=== PATIENT | male | born 1990 | race Caucasian/White ===

== ENCOUNTER 2017-05-21 19:13 | Emergency (ER) | payer OTHER ==
[~2017-05-21] VITALS: Ht 185.4 cm; Wt 65.0 kg
[~2017-05-21 19:13] MED LIST: ATR25 PO; BENZ0.5T2 PO; PRVHFAIN INH; RISP-99 PO
[2017-05-21 19:26] VITALS: TEMP 36.7; Ht 185.4 cm; Wt 65.0 kg
[2017-05-21] MEDS ORDERED: LORAZEPAM 2 MG/ML 1 ML VIAL IV STA (19:38)
[2017-05-21] MEDS ORDERED: SODIUM CHLORIDE 0.9% 1000ML 1,000 ML IV STA (19:38)
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
[2017-05-21 19:56] LABS: BASO % 0.2 %; BASO ABS # 0.02 K/uL (0-0.2); EOS % 4.1 %; HEMOGLOBIN 14.5 g/dL (14.0-18.0); IG# 0.02 K/uL (0.00-0.02); LYMPH % 16.9 %; LYMPH ABS # 1.65 K/uL (1.2-3.4); MEAN CELL VOLUME 81.5 fL (80-100); MEAN CORPUSCULAR HEMOGLOBIN 28.8 pg (25-34); MEAN CORPUSCULAR HGB CONC 35.4 g/dl (32-36); MEAN PLATELET VOLUME 8.7 fL (7.4-10.4); MONO % 8.6 %; MONO ABS # 0.84 K/uL (0.11-0.59); NEUT ABS # 6.81 K/uL (1.4-6.5); PLATELET COUNT 208 K/uL (130-400); RED CELL DISTRIBUTION WIDTH CV 14.3 % (11.5-14.5); RED CELL DISTRIBUTION WIDTH SD 42.6 fL (36.4-46.3); WHITE BLOOD COUNT 9.74 K/uL (4.8-10.8)
[2017-05-21 20:17] LABS: ALBUMIN 3.9 gm/dl (3.4-5.0); CALCIUM 8.6 mg/dl (8.5-10.1); CREATININE 1.26 mg/dl (0.60-1.40); POTASSIUM 3.6 mmol/L (3.5-5.1)
[2017-05-21] MEDS ORDERED: NAPR1TAB9 PO (20:21)
[2017-05-21 20:28] LABS: TOTAL PROTEIN 6.6 gm/dl (6.4-8.2)
--- NOTE | 2017-05-22 06:12 | EMERGENCY ROOM VISIT NOTE ---
ED Visit Note First contact with patient: 02:25 27yr old methamphetamine addicted male with history of bipolar arrived acutely agitated last evening and initially evaluated, treated by Dr Haines who gave ativan IV to help calm him down. Re-evaluated ~3am and patient still under influence of meth and not in any position to make level headed decisions. Eventually able to sleep some and will await morning when awake, sober and capable to discussing his mental health, his statements regarding killing himself (which at this time he doesn't even remember), and whether he is safe for discharge or requires inpatient treatment. Patient stable throughout rest of evening at which time he was signed out to Dr Witt awaiting sobering and further mental health evaluation.
[2017-05-22] MEDS ORDERED: LORAZEPAM 1 MG TAB SL STA (09:00)
--- NOTE | 2017-05-22 09:25 | EMERGENCY ROOM VISIT NOTE ---
ED Visit Note First contact with patient: 06:38 Patient signed out to me at change of shift pending mental health evaluation. Patient had his mental health evaluations morning and was felt stable enough to be discharged. He denies being suicidal or homicidal. The case was discussed with [facility] police. They do not wish to have the patient returned. He was given 2 mg of Ativan while in the emergency department.
[2017-05-22 10:17] VITALS: BP 110/68; PULSE 93; O2SAT 95
== END 2017-05-22 10:18 | disposition home or self-care (01) ==
LOC: EDBD 19:13 → C.EDA 19:15
DX: F19.10 Other psychoactive substance abuse, uncomplicated (principal); R45.850 Homicidal ideations; R45.851 Suicidal ideations; F31.9 Bipolar disorder, unspecified; F17.200 Nicotine dependence, unspecified, uncomplicated; Z79.899 Other long term (current) drug therapy; Z82.49 Family history of ischemic heart disease and other diseases of the circulatory system; Z83.3 Family history of diabetes mellitus; Z82.3 Family history of stroke

== ENCOUNTER 2017-09-15 04:46 | Inpatient (IN) | payer OTHER ==
[~2017-09-15] VITALS: Ht 188 cm; Wt 67.2 kg
[~2017-09-15 04:46] MED LIST changes: +NAPR1TAB9 PO
[2017-09-15] MEDS ORDERED: SODIUM CHLORIDE 0.9% 1000ML 2,000 ML IV STA (04:58)
[2017-09-15] MEDS ORDERED: LORAZEPAM 2 MG/ML 1 ML VIAL IV STA (04:58)
[2017-09-15] MEDS ORDERED: LORAZEPAM 2 MG/ML 1 ML VIAL ONE (04:58)
[2017-09-15 05:09] LABS: BASO % 0.3 %; BASO ABS # 0.04 K/uL (0-0.2); EOS % 0.4 %; EOS ABS # 0.06 K/uL (0-0.5); HEMATOCRIT 40.5 % (42-52); HEMOGLOBIN 14.9 g/dL (14.0-18.0); IG# 0.03 K/uL (0.00-0.02); LYMPH % 23.2 %; MEAN CELL VOLUME 79.1 fL (80-100); MEAN CORPUSCULAR HEMOGLOBIN 29.1 pg (25-34); MEAN CORPUSCULAR HGB CONC 36.8 g/dl (32-36); MONO % 16.3 %; MONO ABS # 2.45 K/uL (0.11-0.59); NEUT % 59.6 %; NEUT ABS # 8.99 K/uL (1.4-6.5); PLATELET COUNT 216 K/uL (130-400); RED CELL DISTRIBUTION WIDTH CV 12.9 % (11.5-14.5); RED CELL DISTRIBUTION WIDTH SD 37.2 fL (36.4-46.3); WHITE BLOOD COUNT 15.07 K/uL (4.8-10.8)
[2017-09-15 05:19] LABS: INR 1.1 (0.9-1.1); PTT PATIENT 24.3 SECONDS (21.0-31.0)
[2017-09-15 05:28] LABS: ALBUMIN 4.6 gm/dl (3.4-5.0); CALCIUM 9.4 mg/dl (8.5-10.1); CREATININE 2.06 mg/dl (0.60-1.40); POTASSIUM 3.8 mmol/L (3.5-5.1)
[2017-09-15] MEDS ORDERED: DIPHTHERIA/TETANUS/PERTUSSIS 0.5 ML SYR/VIAL IM. ONE (05:30)
--- NOTE | 2017-09-15 05:31 | EMERGENCY ROOM VISIT NOTE ---
History First contact with patient: 04:58 Chief Complaint: OVERDOSE (INTENTIONAL) Stated Complaint: OVERDOSE History of Present Illness The patient is a 27 year old male who presents to the Emergency Room following cocaine/drug overdose. Most of story per EMS who were called to his residence by his grandmother who note he was acting abnormally. EMS arrived to find acutely agitated patient who states he took IV cocaine laced with something. Unfortunately story is somewhat confounded by patient's severe agitation and periodically stating he has been having this for the last few hours to several days. Does yell out that his cocaine must have been laced with bath salts or meth. EMS gave patient 4mg IM ativan (by my med command) en route with mild improvement in his aggitation. No trauma reported. Patient does not know last tetanus vaccination. Review of Systems See HPI for pertinent positives & negatives. Unable to obtain full ROS as patient is OD and severely agitated with rapidly changing mood and story. Past Medical/Surgical History Medical Problems: (1) Bipolar disorder (2) Drug overdose (3) Opioid dependence (4) Overdose (5) Polysubstance dependence Family History Coronary artery disease Diabetes mellitus Bannock's chorea Myocardial infarction Stroke Social History Smoking Status: Former Smoker Alcohol Use: occasionally Drug Use: cocaine, marijuana, other Marital Status: single Occupation Status: employed Current/Historical Medications Scheduled Bupropion HCl (Bupropion HCl Sr), 75 MG PO DAILY Carbamazepine (Tegretol), 1.5 TAB PO BID Citalopram Hydrobromide (Celexa), 1 TAB PO DAILY Naproxen (Aleve), 440 MG PO PRN Scheduled PRN Albuterol (Ventolin Hfa), 1 PUFF INH Q4H PRN for SOB/Wheezing Hydroxyzine HCl (Hydroxyzine HCl), 25 MG PO DIRECTED PRN for Anxiety and/or Sedation Physical Exam Vital Signs Date Time Temp Pulse Resp B/P (MAP) Pulse Ox O2 Delivery O2 Flow Rate FiO2 09/15/17 08:00 86 19 113/61 98 09/15/17 07:00 95 111/56 97 Room Air 09/15/17 06:41 119/74 09/15/17 06:26 90 20 94 Room Air 09/15/17 06:21 97 20 98 Room Air 09/15/17 06:00 120/65 09/15/17 05:51 101 21 96 Room Air 09/15/17 05:30 115/69 09/15/17 05:21 118 13 93 Room Air 09/15/17 05:16 111 25 92 Room Air 09/15/17 05:11 115 09/15/17 05:09 125/71 09/15/17 05:04 172/134 09/15/17 04:46 95 Room Air 09/15/17 04:46 37.0 162 26 172/134 95 Room Air Physical Exam GENERAL: Patient is severely agitated appearing and in moderate/severe distress. EYES: Injected conjunctiva bilaterally, unremarkable pupils. ENT: Mucous membranes dry, no nasal congestion. NECK: No masses appreciated, no meningismus, trachea is midline. RESPIRATORY: No dyspnea. Clear to auscultation and equal bilaterally. No wheeze , no rhonchi. CARDIOVASCULAR: Tachycardic. No murmurs, rubs, gallops appreciated. GASTROINTESTINAL: Abdomen soft, nontender, no peritonitis. Bowel sounds positive. No masses appreciated. BACK: No midline tenderness, no CVA tenderness EXTREMITIES: Normal motion all extremities, no cyanosis, no edema. NEUROLOGIC: Severely agitated, consistent with meth overdose, no acute motor or sensory deficits, no focal weakness, cranial nerves grossly intact. SKIN: Tract dozier bilateral AC and upper arms. Bruising/pressure redness anterior knees. No jaundice. Medical Decision & Procedures Laboratory Results 09/15/17 04:54 Red Blood Count 5.12, Mean Corpuscular Volume 79.1, Mean Corpuscular Hemoglobin 29.1, Mean Corpuscular Hemoglobin Concent 36.8, Mean Platelet Volume 9.0, Neutrophils (%) (Auto) 59.6, Lymphocytes (%) (Auto) 23.2, Monocytes (%) (Auto) 16.3, Eosinophils (%) (Auto) 0.4, Basophils (%) (Auto) 0.3, Neutrophils # (Auto ) 8.99, Lymphocytes # (Auto) 3.50, Monocytes # (Auto) 2.45, Eosinophils # (Auto ) 0.06, Basophils # (Auto) 0.04 09/15/17 04:54 Test 09/15/17 04:54 09/15/17 04:58 White Blood Count 15.07 K/uL (4.8-10.8) Red Blood Count 5.12 M/uL (4.7-6.1) Hemoglobin 14.9 g/dL (14.0-18.0) Hematocrit 40.5 % (42-52) Mean Corpuscular Volume 79.1 fL (80-100) Mean Corpuscular Hemoglobin 29.1 pg (25-34) Mean Corpuscular Hemoglobin Concent 36.8 g/dl (32-36) Platelet Count 216 K/uL (130-400) Mean Platelet Volume 9.0 fL (7.4-10.4) Neutrophils (%) (Auto) 59.6 % Lymphocytes (%) (Auto) 23.2 % Monocytes (%) (Auto) 16.3 % Eosinophils (%) (Auto) 0.4 % Basophils (%) (Auto) 0.3 % Neutrophils # (Auto) 8.99 K/uL (1.4-6.5) Lymphocytes # (Auto) 3.50 K/uL (1.2-3.4) Monocytes # (Auto) 2.45 K/uL (0.11-0.59) Eosinophils # (Auto) 0.06 K/uL (0-0.5) Basophils # (Auto) 0.04 K/uL (0-0.2) RDW Standard Deviation 37.2 fL (36.4-46.3) RDW Coefficient of Variation 12.9 % (11.5-14.5) Immature Granulocyte % (Auto) 0.2 % Immature Granulocyte # (Auto) 0.03 K/uL (0.00-0.02) Prothrombin Time 12.0 SECONDS (9.0-12.0) Prothromb Time International Ratio 1.1 (0.9-1.1) Activated Partial Thromboplast Time 24.3 SECONDS (21.0-31.0) Partial Thromboplastin Ratio 0.9 Anion Gap 15.0 mmol/L (3-11) Est Creatinine Clear Calc Drug Dose 54.3 ml/min Estimated GFR () 50.0 Estimated GFR (Non- 43.2 BUN/Creatinine Ratio 14.0 (10-20) Osmolality 295 mOsm/kg (280-300) Calcium Level 9.4 mg/dl (8.5-10.1) Phosphorus Level 7.7 mg/dl (2.5-4.9) Magnesium Level 1.8 mg/dl (1.8-2.4) Total Bilirubin 0.9 mg/dl (0.2-1) Direct Bilirubin 0.3 mg/dl (0-0.2) Aspartate Amino Transf (AST/SGOT) 173 U/L (15-37) Alanine Aminotransferase (ALT/SGPT) 61 U/L (12-78) Alkaline Phosphatase 89 U/L (45-117) Total Creatine Kinase 4846 U/L (39-308) Creatine Kinase MB 45.3 ng/ml (0.5-3.6) Creatine Kinase MB Ratio 0.9 (0-3.0) Total Protein 8.0 gm/dl (6.4-8.2) Albumin 4.6 gm/dl (3.4-5.0) Lipase 74 U/L (73-393) Ethyl Alcohol mg/dL < 3.0 mg/dl (0-3) Medications Administered Medications (Trade) Dose Ordered Sig/Demond Route Start Time Stop Time Status Last Admin Dose Admin Sodium Chloride 2,000 ml @ 999 mls/hr Q2H1M STAT IV 09/15/17 04:58 09/15/17 06:58 DC 09/15/17 05:14 999 MLS/HR Lorazepam (Ativan Inj) 2 mg NOW STAT IV 09/15/17 04:58 09/15/17 05:00 DC 09/15/17 05:14 2 MG Diphtheria/ Pertussis/Tetanus Vacc (Adacel Inj) 0.5 ml ONCE ONCE IM. 09/15/17 05:30 09/15/17 05:31 DC 09/15/17 05:43 0.5 ML Sodium Chloride 1,000 ml @ 200 mls/hr Q5H STAT IV 09/15/17 05:50 09/15/17 10:18 DC 09/15/17 06:52 200 MLS/HR Sodium Chloride 1,000 ml @ 125 mls/hr Q8H IV 09/15/17 08:14 10/15/17 08:13 09/15/17 10:50 125 MLS/HR Medical Decision Differential: Alcohol Intoxication, Drug Intoxication, Electrolyte Abnormality, Trauma, Intracranial Event, Toxicological, Excited Delirium, Serotonin Syndrome , amongst other pathologies entertained. 27 yr old male arrives severely agitated who is well known to department for meth addiction and previous drug overdoses. By exam he is consistent with meth overdose. He has moderate hypertension, significant tachycardia and is somewhat out of control on arrival requiring restraints, hand cuffs and security. I was unable to verbally deescalate nor re-direct the patient. The patient's combative behavior was risking a catastrophe. To protect the staff and the patient from harm it was necessary to chemically and physically restrain the patient. He was given 2 L NSS bolus followed by NSS infusion. Required 2mg IM Ativan, 2mg IV Ativan, and 10mg IM haldol to properly sedate to point where no longer actively fighting restraints. There is not evidence of head injury and he does not act like head injury. He has had several CT heads in past for similar and I do not feel that repeating this required at this time. Labs consistent with acute rhabdomyolysis and he is entering renal failure. Trop mildly bumped which is consistent with rhabdo, though could be some cardiac given report of cocaine use and this tachycardia/HTN on arrival. No STEMI on EKG and I do not feel it represents ACS at this time. QTC is < 500 post haldol. BiCarb mildly low consistent with his agitated state prior to arrival. O2 sats remain good. Consulted hospitalist for further management given rhabdo and renal failure. They have ordered cxr, ct chest, ct abdo for further evaluation and these reports are pending. Head Trauma GCS Score: 14 Medication Reconcilliation Current Medication List: was personally reviewed by me Blood Pressure Screening Patient's blood pressure: Elevated blood pressure Will be further monitored by hospitalist. Impression Primary Impression: Methamphetamine intoxication Additional Impressions: Rhabdomyolysis Renal failure Dehydration Combative behavior Excited Delirium Critical Care I have personally spent greater than 35 minutes of critical care time in the direct management of this patient. This was a life/limb threatening event. This includes time spent evaluating patient, direct bedside care, chart review, placing orders, interpretation of diagnostic studies, discussion with consultants, patient, and family members, as well as other required patient management activities. This 35 minutes is in excess of all separately billable procedures. Departure Information Referrals Lux Salinas PA-C (PCP) Patient Instructions My [facility] Problem Qualifiers
[2017-09-15 05:47] LABS: CKMB 45.3 ng/ml (0.5-3.6); PHOSPHORUS 7.7 mg/dl (2.5-4.9)
[2017-09-15] MEDS ORDERED: SODIUM CHLORIDE 0.9% 1000ML 1,000 ML IV STA (05:50)
--- NOTE | 2017-09-15 07:03 | DIAGNOSTIC IMAGING REPORT ---
CHEST ONE VIEW PORTABLE CLINICAL HISTORY: 27 years-old Male presenting with hypoxia, drug overdose. TECHNIQUE: Portable supine AP view of the chest was obtained. COMPARISON: None. FINDINGS: Cardiomediastinal silhouette normal. Pulmonary vascular prominence. Bronchial wall thickening. Lungs and pleural spaces clear. Osseous structures normal. Upper abdomen normal. IMPRESSION: 1. Bronchial wall thickening could suggest reactive airways or bronchitis. 2. Pulmonary vascular prominence could relate to supine technique versus congestive change/volume overload. Electronically signed by: Bora Hair M.D. 09/15/2017 7:02 AM Dictated Date/Time: 09/15/2017 7:01 AM
--- NOTE | 2017-09-15 07:30 | DIAGNOSTIC IMAGING REPORT ---
(CHEST) THORAX WITHOUT CLINICAL HISTORY: Hypoxia, drug overdose, abnormal chest x-ray. COMPARISON STUDY: Chest x-ray dated 09/15/2017 CT DOSE: 660.36 mGy.cm TECHNIQUE: CT of the thorax was performed from the thoracic inlet to the lung bases. Images are reviewed in the axial, sagittal, and coronal planes. IV contrast was not administered for this examination. A dose lowering technique was utilized adhering to the principles of ALARA. FINDINGS: Thyroid: Imaged portions of the thyroid gland are normal in appearance. Thoracic aorta: The thoracic aorta is normal in course and caliber, noting standard 3 vessel arch anatomy. Heart: The heart is normal in size and configuration, without pericardial effusion. Lungs and pleural spaces: No pleural effusions are visualized. There are tiny apical blebs present. There is a 17 mm groundglass pleural-based opacity within the right upper lobe. This is likely atelectatic or inflammatory. Mediastinum: There is no mediastinal lymphadenopathy. Vickie: There is no evidence of pathologic hilar adenopathy given the limitations of a noncontrast study Axilla: Clear. Upper abdomen: Partially visualized upper abdominal viscera is within normal limits. Skeletal structures: There are no lytic or blastic osseous lesions. IMPRESSION: 1. 17 x 16 x 7 mm groundglass pleural-based opacity within the right upper lobe anteriorly, likely atelectatic or inflammatory 2. Biapical blebs 3. No evidence of pathologic adenopathy on this noncontrast study Electronically signed by: Hardeep Kelly M.D. 09/15/2017 7:29 AM Dictated Date/Time: 09/15/2017 7:23 AM
--- NOTE | 2017-09-15 07:43 | DIAGNOSTIC IMAGING REPORT ---
ABDOMEN AND PELVIS CT WITHOUT CONTRAST CT DOSE: HISTORY: Acute kidney injury, elevated LFT's, IV drug abuse TECHNIQUE: Multiaxial CT images of the abdomen and pelvis were performed without contrast. A dose lowering technique was utilized adhering to the principles of ALARA. COMPARISON STUDY: None. FINDINGS: There is streak artifact overlying the upper abdominal structures due to the patient's overlapping arms. The lung bases are clear. No pneumoperitoneum. No pneumatosis. No acute fractures within the visualized osseous structures. The unenhanced liver, spleen, adrenal glands, pancreas, gallbladder, and kidneys are unremarkable. No retroperitoneal lymphadenopathy. Normal bladder. No pelvic free fluid. Suboptimal evaluation for bowel pathology due to the lack of intravenous and oral contrast. However, there is no definite bowel wall thickening or obstruction. The visualized appendix appears unremarkable. IMPRESSION: No significant abnormality identified within the abdomen or pelvis. Electronically signed by: Guero Frias M.D. 09/15/2017 7:42 AM Dictated Date/Time: 09/15/2017 7:36 AM
--- NOTE | 2017-09-15 08:14 | History and Physical ---
History & Physical Date & Time of Service: September 15, 2017 at 08:08 Chief Complaint: Overdose Primary Care Physician: Lux Salinas PA-C History of Present Illness This is a 27 yo M with PMHx of bipolar disorder, polysubstance abuse who presented to the ER after EMS picked patient up as his grandmother noted abnormal behavior. The patient is unable to provide any history due to sedation. Per nursing, the patient was extremely agitated in EMS therefore was administered Ativan 4 mg IV. Pt is reported to have injected cocaine which may or may not have been laced with another substance. Past Medical/Surgical History Medical Problems: (1) Altered mental status (2) Bipolar disorder (3) Homicidal ideation (4) Illicit drug use (5) Opioid dependence (6) Overdose (7) Polysubstance dependence (8) Substance abuse (9) Suicidal ideation Family History Coronary artery disease Diabetes mellitus Alessio's chorea Myocardial infarction Stroke Social History Smoking Status: Former Smoker Drug Use: cocaine, marijuana, other Marital Status: single Housing status: lives with family Occupational Status: employed Immunizations History of Influenza Vaccine: Yes History of Tetanus Vaccine?: Yes History of Pneumococcal: No History of Hepatitis B Vaccine: No Allergies Coded Allergies: No Known Allergies (Unverified , none, 05/12/11) Home Medications Scheduled Benztropine Mesylate (Benztropine Mesylate), 0.5 MG PO BID Naproxen (Aleve), 440 MG PO PRN Risperidone (Risperidone), 0.5 MG PO HS Scheduled PRN Albuterol (Ventolin Hfa), 1 PUFF INH Q4H PRN for SOB/Wheezing Hydroxyzine HCl (Hydroxyzine HCl), 25 MG PO DIRECTED PRN for Anxiety and/or Sedation Review of Systems ROS unobtainable due to sedation. Physical Exam Vital Signs Date Time Temp Pulse Resp B/P (MAP) Pulse Ox O2 Delivery O2 Flow Rate FiO2 09/15/17 07:00 95 111/56 97 Room Air 09/15/17 06:41 119/74 09/15/17 06:26 90 20 94 Room Air 09/15/17 06:21 97 20 98 Room Air 09/15/17 06:00 120/65 09/15/17 05:51 101 21 96 Room Air 09/15/17 05:30 115/69 09/15/17 05:21 118 13 93 Room Air 09/15/17 05:16 111 25 92 Room Air 09/15/17 05:11 115 09/15/17 05:09 125/71 09/15/17 05:04 172/134 09/15/17 04:46 95 Room Air 09/15/17 04:46 37.0 162 26 172/134 95 Room Air General Appearance: WD/WN, no apparent distress, + pertinent finding (asleep, laying on stomach, in 4 point leather restraints) Head: normocephalic, atraumatic Eyes: PERRL, EOMI, + pertinent finding (responds to light being shown in eyes) ENT: + pertinent finding (MMM) Neck: no JVD Respiratory/Chest: lungs clear, no respiratory distress, no accessory muscle use Cardiovascular: no murmur, + tachycardia (regular rhythm) Back: normal inspection Extremities/Musculoskelatal: normal inspection, no pedal edema, + pertinent finding (erythema over the left elbow/forearm) Neurologic/Psych: + pertinent finding (asleep due to sedation) Skin: normal color, warm/dry, + pertinent finding (multiple tatoos) Diagnostics Laboratory Results Results Past 24 Hours Test 09/15/17 04:54 09/15/17 04:58 Range/Units White Blood Count 15.07 4.8-10.8 K/uL Red Blood Count 5.12 4.7-6.1 M/uL Hemoglobin 14.9 14.0-18.0 g/dL Hematocrit 40.5 42-52 % Mean Corpuscular Volume 79.1 80-100 fL Mean Corpuscular Hemoglobin 29.1 25-34 pg Mean Corpuscular Hemoglobin Concent 36.8 32-36 g/dl Platelet Count 216 130-400 K/uL Mean Platelet Volume 9.0 7.4-10.4 fL Neutrophils (%) (Auto) 59.6 % Lymphocytes (%) (Auto) 23.2 % Monocytes (%) (Auto) 16.3 % Eosinophils (%) (Auto) 0.4 % Basophils (%) (Auto) 0.3 % Neutrophils # (Auto) 8.99 1.4-6.5 K/uL Lymphocytes # (Auto) 3.50 1.2-3.4 K/uL Monocytes # (Auto) 2.45 0.11-0.59 K/uL Eosinophils # (Auto) 0.06 0-0.5 K/uL Basophils # (Auto) 0.04 0-0.2 K/uL RDW Standard Deviation 37.2 36.4-46.3 fL RDW Coefficient of Variation 12.9 11.5-14.5 % Immature Granulocyte % (Auto) 0.2 % Immature Granulocyte # (Auto) 0.03 0.00-0.02 K/uL Prothrombin Time 12.0 9.0-12.0 SECONDS Prothromb Time International Ratio 1.1 0.9-1.1 Activated Partial Thromboplast Time 24.3 21.0-31.0 SECONDS Partial Thromboplastin Ratio 0.9 Sodium Level 137 136-145 mmol/L Potassium Level 3.8 3.5-5.1 mmol/L Chloride Level 104 98-107 mmol/L Carbon Dioxide Level 18 21-32 mmol/L Anion Gap 15.0 3-11 mmol/L Blood Urea Nitrogen 29 7-18 mg/dl Creatinine 2.06 0.60-1.40 mg/dl Est Creatinine Clear Calc Drug Dose 54.3 ml/min Estimated GFR () 50.0 Estimated GFR (Non- 43.2 BUN/Creatinine Ratio 14.0 10-20 Random Glucose 111 70-99 mg/dl Osmolality 295 280-300 mOsm/kg Calcium Level 9.4 8.5-10.1 mg/dl Phosphorus Level 7.7 2.5-4.9 mg/dl Magnesium Level 1.8 1.8-2.4 mg/dl Total Bilirubin 0.9 0.2-1 mg/dl Direct Bilirubin 0.3 0-0.2 mg/dl Aspartate Amino Transf (AST/SGOT) 173 15-37 U/L Alanine Aminotransferase (ALT/SGPT) 61 12-78 U/L Alkaline Phosphatase 89 45-117 U/L Total Creatine Kinase 4846 39-308 U/L Creatine Kinase MB 45.3 0.5-3.6 ng/ml Creatine Kinase MB Ratio 0.9 0-3.0 Troponin I 0.063 0-0.045 ng/ml Total Protein 8.0 6.4-8.2 gm/dl Albumin 4.6 3.4-5.0 gm/dl Lipase 74 73-393 U/L Ethyl Alcohol mg/dL < 3.0 0-3 mg/dl Diagnostic Radiology CHEST ONE VIEW PORTABLE CLINICAL HISTORY: 27 years-old Male presenting with hypoxia, drug overdose. TECHNIQUE: Portable supine AP view of the chest was obtained. COMPARISON: None. FINDINGS: Cardiomediastinal silhouette normal. Pulmonary vascular prominence. Bronchial wall thickening. Lungs and pleural spaces clear. Osseous structures normal. Upper abdomen normal. IMPRESSION: 1. Bronchial wall thickening could suggest reactive airways or bronchitis. 2. Pulmonary vascular prominence could relate to supine technique versus congestive change/volume overload. ABDOMEN AND PELVIS CT WITHOUT CONTRAST CT DOSE: HISTORY: Acute kidney injury, elevated LFT's, IV drug abuse TECHNIQUE: Multiaxial CT images of the abdomen and pelvis were performed without contrast. A dose lowering technique was utilized adhering to the principles of ALARA. COMPARISON STUDY: None. FINDINGS: There is streak artifact overlying the upper abdominal structures due to the patient's overlapping arms. The lung bases are clear. No pneumoperitoneum. No pneumatosis. No acute fractures within the visualized osseous structures. The unenhanced liver, spleen, adrenal glands, pancreas, gallbladder, and kidneys are unremarkable. No retroperitoneal lymphadenopathy. Normal bladder. No pelvic free fluid. Suboptimal evaluation for bowel pathology due to the lack of intravenous and oral contrast. However, there is no definite bowel wall thickening or obstruction. The visualized appendix appears unremarkable. IMPRESSION: No significant abnormality identified within the abdomen or pelvis. Electronically signed by: Guero Frias M.D. 09/15/2017 7:42 AM Dictated Date/Time: 09/15/2017 7:36 AM The status of this report is Signed. (CHEST) THORAX WITHOUT CLINICAL HISTORY: Hypoxia, drug overdose, abnormal chest x-ray. COMPARISON STUDY: Chest x-ray dated 09/15/2017 CT DOSE: 660.36 mGy.cm TECHNIQUE: CT of the thorax was performed from the thoracic inlet to the lung bases. Images are reviewed in the axial, sagittal, and coronal planes. IV contrast was not administered for this examination. A dose lowering technique was utilized adhering to the principles of ALARA. FINDINGS: Thyroid: Imaged portions of the thyroid gland are normal in appearance. Thoracic aorta: The thoracic aorta is normal in course and caliber, noting standard 3 vessel arch anatomy. Heart: The heart is normal in size and configuration, without pericardial effusion. Lungs and pleural spaces: No pleural effusions are visualized. There are tiny apical blebs present. There is a 17 mm groundglass pleural-based opacity within the right upper lobe. This is likely atelectatic or inflammatory. Mediastinum: There is no mediastinal lymphadenopathy. Vickie: There is no evidence of pathologic hilar adenopathy given the limitations of a noncontrast study Axilla: Clear. Upper abdomen: Partially visualized upper abdominal viscera is within normal limits. Skeletal structures: There are no lytic or blastic osseous lesions. IMPRESSION: 1. 17 x 16 x 7 mm groundglass pleural-based opacity within the right upper lobe anteriorly, likely atelectatic or inflammatory 2. Biapical blebs 3. No evidence of pathologic adenopathy on this noncontrast study Electronically signed by: Hardeep Kelly M.D. 09/15/2017 7:29 AM Dictated Date/Time: 09/15/2017 7:23 AM The status of this report is Signed. EKG Sinus tachycardia Rightward axis Borderline ECG When compared with ECG of 21-MAY-2017 19:46, No significant change was found Vent. rate 112 BPM KS interval 132 ms QRS duration 104 ms QT/QTc 354/483 ms P-R-T axes 70 97 58 Impression Assessment and Plan 27 yo M with Drug overdose - Admit to PCU, tele for monitoring due to elevated HR and BP - Troponin mildly elevated 0.063, likely due to tachycardia/demand ischemia, will trend x 2 more sets - Continue ativan as needed for agitation - Soft restraints, 1:1 sitter - IVFs - Tox screen in process - per EMS/nursing possible IV cocaine use. Etoh negative. - Will consult psychiatry - as pt wakes up will need to determine if see's outpatient psychiatric provider and have him follow up/D&A counseling - monitor for signs of withdrawal - Follow am cbc/prp/mag levels - Imaging reviewed; CXR WNL, CT abd WNL. - CT chest showing 17 x 16 x 7 mm groundglass pleural-based opacity within the right upper lobe anteriorly, likely atelectatic or inflammatory and Biapical blebs - incentive spirometry and flutter once awake, repeat imaging to show resolution ALEX Mild rhabdomyolysis - Cr = 2.0, CK 4846 - Continue IVFs, follow am prp Bipolar disorder - continue once awakens - risperdol for mood/antipsychotic and cogentin likely for adverse effects of risperdol. - Hold vistaril for anxiety as not needed currently - Consult Psych as above. DVT ppx: teds, no chemical ppx at this time CODE STATUS: Full Disposition: From home, admit to PCU Resuscitation Status VTE Prophylaxis Will order VTE Prophylaxis: Yes Reason for no VTE drug order: Treatment not indicated
[2017-09-15] MEDS ORDERED: ACETAMINOPHEN 325 MG TAB PO PRN (08:15)
[2017-09-15] MEDS ORDERED: ONDANSETRON INJ 2 MG/ML 2 ML VIAL IV PRN (08:15)
[2017-09-15] MEDS ORDERED: ALBUTEROL HFA 8 GM INHALER INH PRN (08:15)
[2017-09-15] MEDS ORDERED: LORAZEPAM 2 MG/ML 1 ML VIAL IV PRN (08:15)
[2017-09-15 10:15] VITALS: BP 97/56; PULSE 67; TEMP 35.8; O2SAT 97; Ht 188 cm; Wt 67.2 kg
[2017-09-15] MEDS: BENZTROPINE MESYLATE 0.5 MG TAB PO SCH ×2 (10:41→20:29)
[2017-09-15] MEDS: SODIUM CHLORIDE 0.9% 1000ML 1,000 ML IV SCH ×2 (10:50→18:51)
[2017-09-15 11:40] VITALS: BP 94/56; PULSE 58; TEMP 36.4; O2SAT 100
[2017-09-15] MEDS ORDERED: WLLSR150 PO (13:41)
[2017-09-15] MEDS ORDERED: CITA10TA8 PO (13:43)
[2017-09-15] MEDS ORDERED: CARB200T PO (13:43)
--- NOTE | 2017-09-15 14:09 | Psychiatric Consultation ---
Consultation Date of Consultation September 15, 2017. Identifying Data 27-year-old single white male with a history of substance abuse and bipolar disorder who was admitted to the hospitalist service this morning after presenting with altered mental status after an overdose on an unknown substance , possibly cocaine or methamphetamine per EMS. Psychiatry is consulted for overdose. Chief Complaint Patient sedated and nonverbal. History of Present Illness Patient has been admitted to the behavioral health unit several times in the past, all short admissions for erratic behavior and psychotic or manic symptoms in the context of substance abuse. He has been diagnosed with bipolar disorder , and has abused methamphetamine, his drug of choice, as well as cocaine, bath salts, synthetic cannabinoids, alcohol, heroin, and many others. He was last on our unit for 3 days in March 2017 for manic and psychotic symptoms in the context of methamphetamine overdose/abuse. At that time, he had gone on a crystal meth binge for several days, was restarted on risperidone, which he had been stable on for about a year previously. He was discharged to outpatient care at [facility]. In the interim, he was seen in the emergency room in May for substance abuse, after the police were called because he was threatening his friend's girlfriend while high on methamphetamine. He made threats to kill himself, kill police, and harm his friends girlfriend, said that he was on probation, and knew he was going to fail his blood test, so [facility]. He was in the ER for an extended period sleeping, and when he awoke, denied all symptoms, so was then discharged to home. The police later contacted ER staff asking whether drugs or drug paraphernalia were found on the patient, and informed them that he was arrested and incarcerated due to violation of probation. This morning, the patient was brought in by EMS due to drug overdose. They were called to his residence by his grandmother who said he was acting abnormally. When they arrived, he was agitated and said he did injected cocaine IV and thought it was laced with something. He was acutely agitated, and received 4 mg of lorazepam IM and round. He was unable to provide a history in the emergency room, was yelling out that his cocaine must have been laced with bath salts or meth. He received an additional IM Haldol and lorazepam in the emergency room. He was hypertensive, tachycardic, agitated to the point of requiring restraints. CBC showed elevated white blood cell count, and troponin, total creatinine kinase,CK-MB, AST, BUN and creatinine were increased. No drug screen was obtained in the emergency room. Spoke with his nurse on the floor, who states he is sedated and unarousable, but has a condom catheter, and they will attempt to collect a urine sample. Patient is not able to participate in the interview due to sedation. Spoke with his grandmother, Felicia Peterson, who per records called EMS. She states that he was just [facility] less [facility] weeks ago, and was doing "so well" until Friday. 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 Friday morning she called him and said "that he did something really bad, used meth and was all strung out, wanted to come home. " She denied that he need displayed depressive symptoms, made suicidal statements, or seemed unstable until he use drugs. [facility] was [facility] several medications, including bupropion SR 75 mg daily, carbamazepine 300 mg twice daily, and citalopram 10 mg daily. He was supposed to follow-up with a psychiatrist, but she is not sure of the details, possibly somebody at the [facility] in [place]. He missed his appointment however, as he was out using drugs. She clarifies that he lives in a mobile home which she bought for him, and she pays his rent, lot fee, utility bills, and car insurance. He still drives, and owns a truck. She does not think that he was set up with substance abuse treatment upon release from [facility]. Past Psychiatric History Current OP Treatment: psychiatrist (Reportedly referred to somebody from [facility], name unknown.) Prior OP Treatment: psychiatrist Prior Psych Hospitalizations: [facility] (As a teenager), [facility] (March 2017, November 2010, August 2010) Access to a Gun: No Suicide Attempts: Yes (Suicide attempt by cutting at age 15) Past Medication Trials Per records: Risperidone, Adderall, Haldol, bupropion, citalopram, carbamazepine. Additional Notes Per grandmother, he has been diagnosed with bipolar disorder and ADHD in the past, however he has never had a drug free period. Past Medical/Surgical History (1) Opioid dependence (2) Overdose (3) Polysubstance dependence (4) Rhabdomyolysis (5) Renal failure (6) Combative behavior (7) Methamphetamine intoxication Allergies Allergies: Coded Allergies: No Known Allergies (Unverified , none, 05/12/11) Home Medications Scheduled Benztropine Mesylate (Benztropine Mesylate), 0.5 MG PO BID Naproxen (Aleve), 440 MG PO PRN Risperidone (Risperidone), 0.5 MG PO HS Scheduled PRN Albuterol (Ventolin Hfa), 1 PUFF INH Q4H PRN for SOB/Wheezing Hydroxyzine HCl (Hydroxyzine HCl), 25 MG PO DIRECTED PRN for Anxiety and/or Sedation Family History Coronary artery disease Diabetes mellitus Colchester's chorea Myocardial infarction Stroke History of Suicide: Yes (Mother was depressed and committed suicide when he was 11 months old.) Smoking Use Smoking Status: Former Smoker Substance History Long history of polysubstance abuse, including heroin, cocaine, methamphetamine , bath salts, synthetic cannabinoids, alcohol, and possibly others. Methamphetamine is his drug of choice. Personal History Lives in: [facility], in a trailer paid for by his grandmother Childhood: Mother when he was 11 months old, and thereafter he was raised by his grandmother. His father is not involved in his life. Work History: Unemployed. 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 Relationship History: never Legal History: reported (History of multiple incarcerations, and just released from [facility] less than [facility] weeks ago. There is a warrant for his arrest on the chart , noting charges of terroristic threats. Records also indicate a history of drug charges.) Review of Systems Patient unable to participate in review of systems due to sedation. Examination Vital Signs Vital Signs Past 12 Hours Date Time Temp Pulse Resp B/P (MAP) Pulse Ox O2 Delivery O2 Flow Rate FiO2 09/15/17 11:40 36.4 58 20 94/56 (69) 100 Room Air 09/15/17 10:15 35.8 67 16 97/56 97 Room Air 09/15/17 09:45 66 20 112/74 100 09/15/17 08:52 79 09/15/17 08:30 76 19 114/77 100 09/15/17 08:00 86 19 113/61 98 09/15/17 07:00 95 111/56 97 Room Air 09/15/17 06:41 119/74 09/15/17 06:26 90 20 94 Room Air 09/15/17 06:21 97 20 98 Room Air 09/15/17 06:00 120/65 09/15/17 05:51 101 21 96 Room Air 09/15/17 05:30 115/69 09/15/17 05:21 118 13 93 Room Air 09/15/17 05:16 111 25 92 Room Air 09/15/17 05:11 115 09/15/17 05:09 125/71 09/15/17 05:04 172/134 09/15/17 04:46 95 Room Air 09/15/17 04:46 37.0 162 26 172/134 95 Room Air Laboratory Results Last 24 Hours Test 09/15/17 04:54 09/15/17 04:58 09/15/17 12:18 White Blood Count 15.07 K/uL Red Blood Count 5.12 M/uL Hemoglobin 14.9 g/dL Hematocrit 40.5 % Mean Corpuscular Volume 79.1 fL Mean Corpuscular Hemoglobin 29.1 pg Mean Corpuscular Hemoglobin Concent 36.8 g/dl Platelet Count 216 K/uL Mean Platelet Volume 9.0 fL Neutrophils (%) (Auto) 59.6 % Lymphocytes (%) (Auto) 23.2 % Monocytes (%) (Auto) 16.3 % Eosinophils (%) (Auto) 0.4 % Basophils (%) (Auto) 0.3 % Neutrophils # (Auto) 8.99 K/uL Lymphocytes # (Auto) 3.50 K/uL Monocytes # (Auto) 2.45 K/uL Eosinophils # (Auto) 0.06 K/uL Basophils # (Auto) 0.04 K/uL RDW Standard Deviation 37.2 fL RDW Coefficient of Variation 12.9 % Immature Granulocyte % (Auto) 0.2 % Immature Granulocyte # (Auto) 0.03 K/uL Prothrombin Time 12.0 SECONDS Prothromb Time International Ratio 1.1 Activated Partial Thromboplast Time 24.3 SECONDS Partial Thromboplastin Ratio 0.9 Sodium Level 137 mmol/L Potassium Level 3.8 mmol/L Chloride Level 104 mmol/L Carbon Dioxide Level 18 mmol/L Anion Gap 15.0 mmol/L Blood Urea Nitrogen 29 mg/dl Creatinine 2.06 mg/dl Est Creatinine Clear Calc Drug Dose 54.3 ml/min Estimated GFR () 50.0 Estimated GFR (Non- 43.2 BUN/Creatinine Ratio 14.0 Random Glucose 111 mg/dl Osmolality 295 mOsm/kg Calcium Level 9.4 mg/dl Phosphorus Level 7.7 mg/dl Magnesium Level 1.8 mg/dl Total Bilirubin 0.9 mg/dl Direct Bilirubin 0.3 mg/dl Aspartate Amino Transf (AST/SGOT) 173 U/L Alanine Aminotransferase (ALT/SGPT) 61 U/L Alkaline Phosphatase 89 U/L Total Creatine Kinase 4846 U/L Creatine Kinase MB 45.3 ng/ml Creatine Kinase MB Ratio 0.9 Troponin I 0.063 ng/ml 0.029 ng/ml Total Protein 8.0 gm/dl Albumin 4.6 gm/dl Lipase 74 U/L Ethyl Alcohol mg/dL < 3.0 mg/dl Mental Examination During interview pt is: other (Sedated, unarousable, unable to participate in the assessment.) Cognition: other (All spheres impaired) Insight: severely impaired Judgement: severely impaired Impression / Recommendations Impression 27-year-old single white male with a history of severe substance abuse who is admitted after overdosing on illicit drugs, cocaine or methamphetamine per his reports. Risk Factors Assessment Male: Yes : Yes /single/: Yes Higher / Fall in social status: No Access to guns: No Health problems: No Mental Health Diagnoses: Yes Substance use disorders: Yes Previous attempt: Yes Family history of suicide: Yes Previous psychiatric stay: Yes Protective Factors Assessment : No Responsible for young children: No Employed: No Stable relationships: Yes Supportive family: Yes Recommendations (1) Drug overdose So far, there is no information to indicates that his overdose was a suicide attempt or an attempt to harm himself; it appears to have been recreational drug use. I have asked nursing staff to please collect a urine sample for drug screen, as it will be important to know what substances are already in his system when choosing appropriate medications to give him if needed for agitation. He will need to be assessed once he is awake and able to participate in an interview. (2) Methamphetamine intoxication Patient presented with symptoms consistent with methamphetamine intoxication. Await results of drug screen. (3) Polysubstance dependence Patient has violated his probation with his ongoing substance abuse, there is a warrant for his arrest, so he will be picked up by police at discharge. (4) Bipolar disorder Confirmed most recent medications with his grandmother: Was on bupropion 75 mg daily, carbamazepine 300 mg twice daily, and citalopram 10 mg daily [facility] from [facility]. Continue carbamazepine and citalopram, but hold bupropion due to risk of inducing seizures with erratic compliance and when mixed with other substances. It would be helpful to determine who his outpatient psychiatrist was supposed to be, so that they can be notified of his current status. It is difficult to know whether he truly has bipolar disorder, as it does not appear that he has ever had a period of sobriety, so many of his mood symptoms could be substance induced.
[2017-09-15 14:54] VITALS: BP 96/54; PULSE 61; TEMP 37; O2SAT 99
[2017-09-15] MEDS ORDERED: NURSING DECISION MEDICATION ORDER SCH (18:45)
[2017-09-15] MEDS ORDERED: LIDOCAINE HCL 2% JELLY 30 ML TUBE EXT SCH (19:00)
[2017-09-15 19:14] VITALS: BP 82/42; PULSE 60; TEMP 36.4; O2SAT 96
[2017-09-15] MEDS: CARBAMAZEPINE 200 MG TAB PO SCH (20:31)
[2017-09-15] MEDS ORDERED: RISPERIDONE 0.5 MG TAB PO SCH (21:00)
[2017-09-16] VITALS: BP 109/57; PULSE 70; TEMP 36.2; O2SAT 97
[2017-09-16] MEDS: SODIUM CHLORIDE 0.9% 1000ML 1,000 ML IV SCH ×2 (02:09→08:38)
[2017-09-16 03:51] VITALS: BP 111/56; PULSE 95; TEMP 36.6; O2SAT 98
[2017-09-16 06:15] LABS: BASO % 0.5 %; BASO ABS # 0.02 K/uL (0-0.2); EOS ABS # 0.25 K/uL (0-0.5); HEMATOCRIT 35.4 % (42-52); HEMOGLOBIN 12.4 g/dL (14.0-18.0); IG# 0.01 K/uL (0.00-0.02); LYMPH % 31.6 %; LYMPH ABS # 1.31 K/uL (1.2-3.4); MEAN CELL VOLUME 82.7 fL (80-100); MEAN PLATELET VOLUME 9.1 fL (7.4-10.4); MONO % 8.4 %; MONO ABS # 0.35 K/uL (0.11-0.59); NEUT % 53.3 %; NEUT ABS # 2.21 K/uL (1.4-6.5); PLATELET COUNT 115 K/uL (130-400); WHITE BLOOD COUNT 4.15 K/uL (4.8-10.8)
[2017-09-16 06:40] LABS: BLOOD UREA NITROGEN 11 mg/dl (7-18); CALCIUM 7.4 mg/dl (8.5-10.1); CARBON DIOXIDE 23 mmol/L (21-32); CREATININE 0.66 mg/dl (0.60-1.40); GLUCOSE 74 mg/dl (70-99); POTASSIUM 3.6 mmol/L (3.5-5.1); SODIUM 141 mmol/L (136-145)
[2017-09-16 06:57] VITALS: BP 110/60; PULSE 78; TEMP 36.6; O2SAT 98
[2017-09-16] MEDS: BENZTROPINE MESYLATE 0.5 MG TAB PO SCH (08:38)
[2017-09-16] MEDS: CARBAMAZEPINE 200 MG TAB PO SCH (08:38)
[2017-09-16] MEDS ORDERED: PIPERACILL/TAZOBAC CONSULT ACTIVE PRN (08:45)
[2017-09-16] MEDS ORDERED: PIPERACILL/TAZOBAC IV 3.375 GM in D5W 100 ML IV ONE (09:00)
[2017-09-16] MEDS ORDERED: VANCOMYCIN CONSULT ACTIVE PRN (09:00)
[2017-09-16] MEDS ORDERED: CITALOPRAM 20 MG TAB PO SCH (09:00)
[2017-09-16] MEDS ORDERED: VANCOMYCIN IV 1,750 MG in SODIUM CHLORIDE 0.9% 500ML 500 ML IV ONE (09:15)
--- NOTE | 2017-09-16 10:50 | Medical Consult ---
Consultation Date of Consultation: September 16, 2017. Attending Physician: Robb Plasencia MD, PhD Reason for Consultation: Dez dozier, MAITE History of Present Illness 27-year-old male with history of bipolar disorder, polysubstance abuse, who was found by family member confused and agitated at home. Reportedly patient injected what he thought was cocaine, but may have been contaminated with methamphetamine or bath salts. He was brought to the emergency room and admitted for further management. He was found to have erythema of his left forearm and elbow, and has been started empirically on vancomycin and Zosyn. Blood cultures are pending. No other pertinent history the available. Past Medical/Surgical History Medical Problems: (1) Altered mental status Status: Acute (2) Combative behavior Status: Acute (3) Dehydration Status: Acute (4) Homicidal ideation Status: Acute (5) Illicit drug use Status: Acute (6) Methamphetamine intoxication Status: Acute (7) Renal failure Status: Acute (8) Rhabdomyolysis Status: Acute (9) Substance abuse Status: Acute (10) Suicidal ideation Status: Acute Medical Problems: (1) Bipolar disorder (2) Drug overdose (3) Opioid dependence (4) Overdose (5) Polysubstance dependence Family History Coronary artery disease Diabetes mellitus Sierra's chorea Myocardial infarction Stroke Social History Smoking Status: Former Smoker Drug Use: cocaine, marijuana, other Marital Status: single Occupation Status: employed Allergies Coded Allergies: No Known Allergies (Unverified , none, 05/12/11) Current Inpatient Medications Current Inpatient Medications Medications (Trade) Dose Ordered Sig/Demond Route Start Time Stop Time Status Last Admin Dose Admin Sodium Chloride 1,000 ml @ 125 mls/hr Q8H IV 09/15/17 08:14 10/15/17 08:13 09/16/17 08:38 125 MLS/HR Acetaminophen (Tylenol Tab) 650 mg Q4H PRN PO 09/15/17 08:15 10/15/17 08:14 Ondansetron HCl (Zofran Inj) 4 mg Q6H PRN IV 09/15/17 08:15 10/15/17 08:14 Albuterol (Ventolin Hfa Inhaler) 1 puffs Q4H PRN INH 09/15/17 08:15 10/15/17 08:14 Benztropine Mesylate (Cogentin Tab) 0.5 mg BID PO 09/15/17 09:00 10/15/17 08:59 Risperidone (Risperdal Tab) 0.5 mg HS PO 09/15/17 21:00 10/15/17 20:59 Lorazepam (Ativan Inj) 1 mg Q4HWA PRN IV 09/15/17 08:15 10/15/17 08:14 Carbamazepine (Tegretol Tab) 300 mg BID PO 09/15/17 21:00 10/15/17 20:59 09/15/17 20:31 300 MG Citalopram Hydrobromide (celeXA TAB) 10 mg DAILY PO 09/16/17 09:00 10/16/17 08:59 Miscellaneous Information (Consult) 1 ea UD PRN N/A 09/16/17 09:00 10/16/17 08:59 Piperacillin Sod/ Tazobactam Sod 3.375 gm/Dextrose 115 ml @ 28.75 mls/ hr Q8H IV 09/16/17 14:00 09/26/17 13:59 Miscellaneous Information (Consult) 1 ea UD PRN N/A 09/16/17 08:45 10/16/17 08:44 Vancomycin HCl 1750 mg/Sodium Chloride 535 ml @ 200 mls/hr 0915 ONCE IV 09/16/17 09:15 09/16/17 11:55 09/16/17 09:44 200 MLS/HR Vancomycin HCl 1000 mg/Sodium Chloride 270 ml @ 125 mls/hr Q8H IV 09/16/17 17:00 09/26/17 08:59 Review of Systems Not obtainable because of patient's mental status Physical Exam Date Time Temp Pulse Resp B/P (MAP) Pulse Ox O2 Delivery O2 Flow Rate FiO2 09/16/17 06:57 36.6 78 16 110/60 (77) 98 Room Air 09/16/17 04:00 Room Air 09/16/17 03:51 36.6 95 16 111/56 (74) 98 Room Air 09/16/17 00:00 36.2 70 18 109/57 (74) 97 Room Air 09/16/17 00:00 Room Air 09/15/17 20:00 Room Air 09/15/17 19:14 36.4 60 20 82/42 (55) 96 5/7/18 16:00 Room Air 09/15/17 14:54 37.0 61 20 96/54 (68) 99 Room Air 09/15/17 12:00 Room Air 09/15/17 11:40 36.4 58 20 94/56 (69) 100 Room Air General Appearance: WD/WN, no apparent distress, + pertinent finding (Sleeping) Head: normocephalic, atraumatic Eyes: normal inspection, EOMI, sclerae normal ENT: normal ENT inspection, pharynx normal Neck: supple, no adenopathy, thyroid normal, trachea midline Respiratory/Chest: chest non-tender, lungs clear, normal breath sounds, no respiratory distress Cardiovascular: regular rate, rhythm, no gallop, no murmur, + tachycardia Abdomen/GI: normal bowel sounds, non tender, soft, no organomegaly Back: normal inspection, no CVA tenderness Extremities/Musculoskelatal: no calf tenderness, normal capillary refill, non- tender Neurologic/Psych: no motor/sensory deficits, + pertinent finding (Lethargic, not answering questions) Skin: normal color, no rash, + pertinent finding (Left elbow and forearm erythema) Lymphatic: no adenopathy Laboratory Results Date/Time Source Procedure Growth Status 09/16/17 08:53 Blood Blood Culture Pending Received 09/16/17 08:49 Blood Blood Culture Pending Received Last 24 Hours Test 09/15/17 12:18 09/15/17 19:51 09/16/17 05:54 09/16/17 08:53 Troponin I 0.029 ng/ml < 0.015 ng/ml White Blood Count 4.15 K/uL Red Blood Count 4.28 M/uL Hemoglobin 12.4 g/dL Hematocrit 35.4 % Mean Corpuscular Volume 82.7 fL Mean Corpuscular Hemoglobin 29.0 pg Mean Corpuscular Hemoglobin Concent 35.0 g/dl Platelet Count 115 K/uL Mean Platelet Volume 9.1 fL Neutrophils (%) (Auto) 53.3 % Lymphocytes (%) (Auto) 31.6 % Monocytes (%) (Auto) 8.4 % Eosinophils (%) (Auto) 6.0 % Basophils (%) (Auto) 0.5 % Neutrophils # (Auto) 2.21 K/uL Lymphocytes # (Auto) 1.31 K/uL Monocytes # (Auto) 0.35 K/uL Eosinophils # (Auto) 0.25 K/uL Basophils # (Auto) 0.02 K/uL RDW Standard Deviation 42.0 fL RDW Coefficient of Variation 14.0 % Immature Granulocyte % (Auto) 0.2 % Immature Granulocyte # (Auto) 0.01 K/uL Sodium Level 141 mmol/L Potassium Level 3.6 mmol/L Chloride Level 112 mmol/L Carbon Dioxide Level 23 mmol/L Anion Gap 6.0 mmol/L Blood Urea Nitrogen 11 mg/dl Creatinine 0.66 mg/dl Est Creatinine Clear Calc Drug Dose 161.2 ml/min Estimated GFR () > 150.0 Estimated GFR (Non- 133.4 BUN/Creatinine Ratio 17.1 Random Glucose 74 mg/dl Calcium Level 7.4 mg/dl Magnesium Level 1.9 mg/dl C-Reactive Protein 3.80 mg/dl Procalcitonin 0.21 ng/ml CHEST ONE VIEW PORTABLE CLINICAL HISTORY: 27 years-old Male presenting with hypoxia, drug overdose. TECHNIQUE: Portable supine AP view of the chest was obtained. COMPARISON: None. FINDINGS: Cardiomediastinal silhouette normal. Pulmonary vascular prominence. Bronchial wall thickening. Lungs and pleural spaces clear. Osseous structures normal. Upper abdomen normal. IMPRESSION: 1. Bronchial wall thickening could suggest reactive airways or bronchitis. 2. Pulmonary vascular prominence could relate to supine technique versus congestive change/volume overload. Electronically signed by: Bora Hair M.D. 09/15/2017 7:02 AM Assessment & Plan Possible early cellulitis in an active drug abuser, likely related to drug injection. Vancomycin and Zosyn will provide adequate coverage pending ride range of potential pathogens pending further culture results. Will adjust once available. Will follow.
[2017-09-16 11:00] VITALS: BP 106/65; PULSE 72; TEMP 36.5; O2SAT 96
[2017-09-16] MEDS ORDERED: NURSING VERBAL MED ORDER ONE (11:15)
--- NOTE | 2017-09-16 11:29 | Psychiatric Progress Notes ---
Progress Note Date of Service September 16, 2017. Interval History 27-year-old single white male with a history of substance abuse and bipolar disorder who was admitted to the hospitalist service 09/15/2017 after presenting with altered mental status after an overdose on cocaine and methamphetamine. Psychiatry was consulted for overdose. Chief Complaint "What do you want?" Subjective Records reviewed and patient seen for follow-up. He became less sedated and was able to come out of restraints yesterday, and a urine sample was obtained for drug screen, which was positive for amphetamine/methamphetamine, MDMA, and cocaine. Synthetic cannabinoids and stimulants were also drawn and are pending. Psychiatric liaison nurse met with him this morning, and he stated that he was feeling scared and paranoid, believed someone was coming after him, and was tired of feeling that way so decided to do 1/4 g of cocaine so that he could relax. He denied any suicidal thinking or intent to harm himself. He said he was worried about his "Pap," stating he helps his grandmother care for his Pap so that he will not have to go into a half-way, as if he dies in the half-way, they would get all of his money. He was asking when he could go home. On my assessment, he was seen with Garo Duenas, MS 4. He was uncooperative with questions initially, refusing to open her eyes, and stating "things and stuff" when asked what he recalls about the events prior to admission. He denies that he was trying to harm or kill himself with his drug use, and admits to smoking and injecting what he thought was cocaine. He says that he was "bored" after being released from alf, "no friends, nothing to do. " When asked about what the plans were for outpatient treatment, he says "probably going to alf, fuck it, [place], my kids won't know me, fuck it, fuck the world, I'm going to get my [place] 15 that I buried and kill everyone." Attempted to talk to him about his children, but he continued to escalate, sat up, stated he was leaving, and was fumbling with the telemetry wires. Again repeated statements about getting his gun and "killing everyone." Terminated the interview, left the room and informed nursing staff that the patient was becoming agitated, and security was called. Placed call to state police per number on the warrant in his chart to report the threats he made, and was advised to call [place] police. Spoke with officer and relayed the statements he made as above. Mental Status Exam During interview pt is: other (Alert, oriented at least to self and hospital, poorly cooperative with assessment, agitated) Appearance: appropriately dressed (Hospital gown) Eye contact is: poor (Keeps eyes closed initially, then opened eyes but did not make eye contact) Motor behavior is: psychomotor agitation, other (Initially lying in bed, but became agitated towards the end of the interview, sat up and stated he was leaving, pulling at leads/wires) Speech: other (Irritated, angry tone) Affect: irritable, angry Mood is: irritable, angry Thought process: goal directed Thought content: reality based without delusions, other (threatening statements ) Suicidal thought are: denied Homicidal thoughts are: denied Cognition: language grossly intact Intelligence estimated to be: average Insight: severely impaired Judgement: severely impaired Impression 27-year-old single white male with a history of substance abuse who is admitted after overdosing on illicit drugs, cocaine and methamphetamine per drug screen results. He has consistently denied that he was suicidal or intended to harm himself, and per grandmother mood was stable prior to drug use. He was continued on his home medications here, with the exception of bupropion which was discontinued due to lowering the seizure threshold and his ongoing substance abuse. There is a warrant for his arrest and per records, he is to be picked up by police at discharge. Today, he was poorly cooperative with the assessment, and quickly escalated to making threats when discussing the possibility that he be returning to alf. Plan (1) Drug overdose So far, there is no information to indicates that his overdose was a suicide attempt or an attempt to harm himself; it appears to have been recreational drug use. I have asked nursing staff to please collect a urine sample for drug screen, as it will be important to know what substances are already in his system when choosing appropriate medications to give him if needed for agitation. He will need to be assessed once he is awake and able to participate in an interview. 09/16 -patient awake and alert, but poorly cooperative with assessment. He stated to the psychiatric liaison nurse and myself that his overdose was not an attempt to harm himself or end his life. His admits to snorting and injecting what he thought was cocaine, and drug screen is positive for cocaine and methamphetamine. Management of overdose per primary team. (2) Methamphetamine intoxication Patient presented with symptoms consistent with methamphetamine intoxication. Await results of drug screen. 09/16 -see above; intoxication resolved. (3) Polysubstance dependence Patient has violated his probation with his ongoing substance abuse, there is a warrant for his arrest, so he will be picked up by police at discharge. 09/16 -contacted state police per number in chart regarding patient's threats of getting [place] 15 that he has buried and "killing everyone." Directed to contact [place] police, as the hospital is in their jurisdiction, and spoke with Officer to relay patient's statements. (4) Bipolar disorder Confirmed most recent medications with his grandmother: Was on bupropion 75 mg daily, carbamazepine 300 mg twice daily, and citalopram 10 mg daily on discharge from alf. Continue carbamazepine and citalopram, but hold bupropion due to risk of inducing seizures with erratic compliance and when mixed with other substances. It would be helpful to determine who his outpatient psychiatrist was supposed to be, so that they can be notified of his current status. It is difficult to know whether he truly has bipolar disorder, as it does not appear that he has ever had a period of sobriety, so many of his mood symptoms could be substance induced. 09/16 -continue carbamazepine and citalopram at reported home doses. Bupropion held as above. We have not been able to clarify who he was referred to for outpatient psychiatric care. Mood was stable prior to using cocaine and methamphetamine several days ago, and there is no indication for inpatient psychiatric treatment. He can continue psychiatric care while incarcerated. Visit Code E&M Code: 98480 Risk Factors Assessment Male: Yes : Yes /single/: Yes Higher / Fall in social status: No Access to guns: Yes (Patient states he buried an AR 15) Health problems: No Mental Health Diagnoses: Yes Substance use disorders: Yes Previous attempt: Yes Family history of suicide: Yes Previous psychiatric stay: Yes Protective Factors Assessment : No Responsible for young children: No Employed: No Stable relationships: Yes Supportive family: Yes Absence of risk factors above: Yes (Patient will be discharged into police custody to return to alf at the time of discharge. He will be in a controlled setting, which will lower his risk of harming himself or others. He denies that he has been depressed, manic, or suicidal. His agitation occurred in the context of cocaine and methamphetamine abuse/overdose.) Data Vital Signs Last 24 Hrs: Date Time Temp Pulse Resp B/P (MAP) Pulse Ox O2 Delivery O2 Flow Rate FiO2 09/16/17 11:00 36.5 72 17 106/65 (79) 96 Room Air 09/16/17 06:57 36.6 78 16 110/60 (77) 98 Room Air 09/16/17 04:00 Room Air 09/16/17 03:51 36.6 95 16 111/56 (74) 98 Room Air 09/16/17 00:00 36.2 70 18 109/57 (74) 97 Room Air 09/16/17 00:00 Room Air 09/15/17 20:00 Room Air 09/15/17 19:14 36.4 60 20 82/42 (55) 96 09/15/17 16:00 Room Air 09/15/17 14:54 37.0 61 20 96/54 (68) 99 Room Air 09/15/17 12:00 Room Air 09/15/17 11:40 36.4 58 20 94/56 (69) 100 Room Air Meds Administered Last 24 Hrs: Meds Administered (Past 24Hrs) Medications (Trade) Dose Ordered Sig/Demond Route Start Time Stop Time Status Last Admin Dose Admin Sodium Chloride 2,000 ml @ 999 mls/hr Q2H1M STAT IV 09/15/17 04:58 09/15/17 06:58 DC 09/15/17 05:14 999 MLS/HR Lorazepam (Ativan Inj) 2 mg NOW STAT IV 09/15/17 04:58 09/15/17 05:00 DC 09/15/17 05:14 2 MG Diphtheria/ Pertussis/Tetanus Vacc (Adacel Inj) 0.5 ml ONCE ONCE IM. 09/15/17 05:30 09/15/17 05:31 DC 09/15/17 05:43 0.5 ML Sodium Chloride 1,000 ml @ 200 mls/hr Q5H STAT IV 09/15/17 05:50 09/15/17 10:18 DC 09/15/17 06:52 200 MLS/HR Sodium Chloride 1,000 ml @ 125 mls/hr Q8H IV 09/15/17 08:14 10/15/17 08:13 09/16/17 08:38 125 MLS/HR Carbamazepine (Tegretol Tab) 300 mg BID PO 09/15/17 21:00 10/15/17 20:59 09/15/17 20:31 300 MG Lidocaine HCl (Xylocaine Jelly 2%) 1900 EXT 09/15/17 19:00 09/15/17 23:00 DC 09/15/17 18:50 1 ML Piperacillin Sod/ Tazobactam Sod 3.375 gm/Dextrose 115 ml @ 230 mls/hr NOW ONCE IV 09/16/17 09:00 09/16/17 09:29 DC 09/16/17 09:26 230 MLS/HR Vancomycin HCl 1750 mg/Sodium Chloride 535 ml @ 200 mls/hr 0915 ONCE IV 09/16/17 09:15 09/16/17 11:55 09/16/17 09:44 200 MLS/HR Lab Results Last 24 Hrs: Last 24 Hours Test 09/15/17 12:18 09/15/17 19:51 09/16/17 05:54 09/16/17 08:53 Troponin I 0.029 ng/ml < 0.015 ng/ml White Blood Count 4.15 K/uL Red Blood Count 4.28 M/uL Hemoglobin 12.4 g/dL Hematocrit 35.4 % Mean Corpuscular Volume 82.7 fL Mean Corpuscular Hemoglobin 29.0 pg Mean Corpuscular Hemoglobin Concent 35.0 g/dl Platelet Count 115 K/uL Mean Platelet Volume 9.1 fL Neutrophils (%) (Auto) 53.3 % Lymphocytes (%) (Auto) 31.6 % Monocytes (%) (Auto) 8.4 % Eosinophils (%) (Auto) 6.0 % Basophils (%) (Auto) 0.5 % Neutrophils # (Auto) 2.21 K/uL Lymphocytes # (Auto) 1.31 K/uL Monocytes # (Auto) 0.35 K/uL Eosinophils # (Auto) 0.25 K/uL Basophils # (Auto) 0.02 K/uL RDW Standard Deviation 42.0 fL RDW Coefficient of Variation 14.0 % Immature Granulocyte % (Auto) 0.2 % Immature Granulocyte # (Auto) 0.01 K/uL Sodium Level 141 mmol/L Potassium Level 3.6 mmol/L Chloride Level 112 mmol/L Carbon Dioxide Level 23 mmol/L Anion Gap 6.0 mmol/L Blood Urea Nitrogen 11 mg/dl Creatinine 0.66 mg/dl Est Creatinine Clear Calc Drug Dose 161.2 ml/min Estimated GFR () > 150.0 Estimated GFR (Non- 133.4 BUN/Creatinine Ratio 17.1 Random Glucose 74 mg/dl Calcium Level 7.4 mg/dl Magnesium Level 1.9 mg/dl C-Reactive Protein 3.80 mg/dl Procalcitonin 0.21 ng/ml
--- NOTE | 2017-09-16 12:13 | Pharmacy Progress Note ---
Pharmacy Abx Initial Consult Date of Service September 16, 2017. Pharmacy Dosing Scope Date of Consult: 09/16/17 Consultation requested by: Dr. Plasencia Pharmacy is consulted to initiate Vancomycin and Zosyn IV dosing therapy, order appropriate labs and adjust drug dose/frequency. Subjective The patient is a 27 year old male admitted on September 15, 2017 at 08:23. Objective Height (Feet): 6 Height (Inches): 2.00 Weight (Kilograms): 67.200 (BMI 19) Vital Signs (Past 12Hrs) Vital Signs Past 12 Hours Date Time Temp Pulse Resp B/P (MAP) Pulse Ox O2 Delivery O2 Flow Rate FiO2 09/16/17 11:00 36.5 72 17 106/65 (79) 96 Room Air 09/16/17 06:57 36.6 78 16 110/60 (77) 98 Room Air 09/16/17 04:00 Room Air 09/16/17 03:51 36.6 95 16 111/56 (74) 98 Room Air Lab Results (24Hrs) Laboratory Tests (24 Hours) Test 09/16/17 05:54 09/16/17 08:53 White Blood Count 4.15 K/uL (4.8-10.8) L Red Blood Count 4.28 M/uL (4.7-6.1) L Hemoglobin 12.4 g/dL (14.0-18.0) L Hematocrit 35.4 % (42-52) L Mean Corpuscular Volume 82.7 fL (80-100) Mean Corpuscular Hemoglobin 29.0 pg (25-34) Mean Corpuscular Hemoglobin Concent 35.0 g/dl (32-36) Platelet Count 115 K/uL (130-400) L Mean Platelet Volume 9.1 fL (7.4-10.4) Neutrophils (%) (Auto) 53.3 % Lymphocytes (%) (Auto) 31.6 % Monocytes (%) (Auto) 8.4 % Eosinophils (%) (Auto) 6.0 % Basophils (%) (Auto) 0.5 % Neutrophils # (Auto) 2.21 K/uL (1.4-6.5) Lymphocytes # (Auto) 1.31 K/uL (1.2-3.4) Monocytes # (Auto) 0.35 K/uL (0.11-0.59) Eosinophils # (Auto) 0.25 K/uL (0-0.5) Basophils # (Auto) 0.02 K/uL (0-0.2) C-Reactive Protein 3.80 mg/dl (0-0.29) H Procalcitonin 0.21 ng/ml (0-0.5) Micro Results Date/Time Source Procedure Growth Status 09/16/17 08:53 Blood Blood Culture Pending Received 09/16/17 08:49 Blood Blood Culture Pending Received Assessment & Plan Assessment 27 year old male admitted for early cellulitis likely related to drug injection Plan Vancomycin IV * Loading dose: 1750 mg (~26 mg/kg) * Maintenance dose: 1000 mg IV (~15 mg/kg) every 8 hours * Goal trough level for : 15 to 20 mcg/mL * Trough level ordered for 09/17/17 @ 0830 * Piperacillin/tazobactam * 3.375 g bolus administered over 30 minutes, then 3.375 g IV extended infusion every 8 hours for CrCl greater than 20 mL/min OR every 12 hours for CrCl 20 mL/ min or less and dialysis Pharmacy will continue to follow and will adjust dose/frequency as necessary. Thank you.
--- NOTE | 2017-09-16 13:15 | ECHOCARDIOGRAM REPORT ---
*NOTICE TO RECEIVING [employer]Y This information is strictly Confidential and protected under [place] law. [place] law prohibits you from making any further disclosure of this information unless further disclosure is expressly permitted by the written consent of the person to whom it pertains or is authorized by law. A general authorization for the release of medical or other information is not sufficient for this purpose. Hospital accepts no responsibility if the information is made available to any other person, INCLUDING THE PATIENT. Interpretation Summary * Name: MILAN PERES Study Date: 09/16/2017 12:12 PM BP: 106/65 mmHg * Patient Location: C.2T\S\S235\S\1 HR: 71 * : 1990 (M/d/yyyy) Gender: Male Height: 74 in * Age: 27 yrs Ethnicity: CA Weight: 148 lb * Ordering Physician: Robb Plasencia * Referring Physician: No Doctor, Assigned * Performed By: Unique Eaton RDCS * * Reason For Study: ENDOCARDITIS * BSA: 1.9 m2 * -- Conclusions -- * Left ventricular systolic function is normal. * Right ventricular systolic pressure is normal. * No vegetations * Normal echo Procedure Details * A complete two-dimensional transthoracic echocardiogram was performed (2D, M-mode, Doppler and color flow Doppler). Left Ventricle * The left ventricle is normal in size. * There is normal left ventricular wall thickness. * Left ventricular systolic function is normal. * Ejection Fraction = 55-60%. * Normal diastolic function * The left ventricular wall motion is normal. Right Ventricle * The right ventricle is normal in size and function. * The right ventricular systolic function is normal as assessed by tricuspid annular plane systolic excursion (TAPSE) (normal >1.5 cm). Atria * The left atrial size is normal. * Right atrial size is normal. Mitral Valve * The mitral valve anatomy is normal. * Significant mitral regurgitation is absent. Tricuspid Valve * The tricuspid valve anatomy is normal. * There is trace tricuspid regurgitation. * Right ventricular systolic pressure is normal. Aortic Valve * The aortic valve is normal in structure and function. * The aortic valve is trileaflet. * No hemodynamically significant valvular aortic stenosis. * No aortic regurgitation is present. Pulmonic Valve * The pulmonic valve is not well seen, but is grossly normal. * There is no significant pulmonary regurgitation. Great Vessels * The aortic root is normal size. Pericardium/Pleural * There is no pericardial effusion. Great Vessels * Normal inferior vena cava diameter and respiratory variation suggests normal central venous pressure. MMode 2D Measurements and Calculations IVSd 0.87 cm IVSs 1.4 cm LVIDd 4.7 cm LVIDs 3.1 cm LVPWd 1.2 cm LVPWs 1.5 cm IVS/LVPW 0.75 FS 35.2 % EDV(Teich) 103.8 ml ESV(Teich) 36.9 ml EF(Teich) 64.5 % EDV(cubed) 105.8 ml ESV(cubed) 28.8 ml EF(cubed) 72.8 % % IVS thick 62.0 % % LVPW thick 31.7 % LV mass(C)d 170.1 grams LV mass(C)dI 89.0 grams/m\S\2 LV mass(C)s 157.3 grams LV mass(C)sI 82.3 grams/m\S\2 SV(Teich) 67.0 ml SI(Teich) 35.0 ml/m\S\2 SV(cubed) 77.0 ml SI(cubed) 40.3 ml/m\S\2 Ao root diam 3.3 cm Ao root area 8.6 cm\S\2 LA dimension 3.4 cm LA/Ao 1.0 LVAd ap4 33.2 cm\S\2 LVLd ap4 9.0 cm EDV(MOD-sp4) 103.2 ml EDV(sp4-el) 103.9 ml LVAs ap4 16.8 cm\S\2 LVLs ap4 6.7 cm ESV(MOD-sp4) 36.8 ml ESV(sp4-el) 36.0 ml EF(MOD-sp4) 64.4 % EF(sp4-el) 65.3 % LVAd ap2 38.3 cm\S\2 LVLd ap2 10.0 cm EDV(MOD-sp2) 120.9 ml EDV(sp2-el) 124.8 ml LVAs ap2 19.5 cm\S\2 LVLs ap2 7.8 cm ESV(MOD-sp2) 41.4 ml ESV(sp2-el) 41.7 ml EF(MOD-sp2) 65.8 % EF(sp2-el) 66.6 % LVLd %diff 9.6 % EDV(MOD-bp) 118.9 ml LVLs %diff 13.9 % ESV(MOD-bp) 42.3 ml EF(MOD-bp) 64.4 % SV(MOD-sp4) 66.4 ml SI(MOD-sp4) 34.7 ml/m\S\2 SV(MOD-sp2) 79.5 ml SI(MOD-sp2) 41.6 ml/m\S\2 SV(MOD-bp) 76.6 ml SI(MOD-bp) 40.0 ml/m\S\2 SV(sp4-el) 67.9 ml SI(sp4-el) 35.5 ml/m\S\2 SV(sp2-el) 83.1 ml SI(sp2-el) 43.4 ml/m\S\2 Doppler Measurements and Calculations MV E max rigoberto 116.9 cm/sec MV A max rigoberto 41.4 cm/sec MV E/A 2.8 MV dec time 0.19 sec Ao V2 max 148.3 cm/sec Ao max PG 8.8 mmHg Ao max PG (full) 3.0 mmHg LV V1 max PG 5.8 mmHg LV V1 max 120.8 cm/sec TR max rigoberto 213.0 cm/sec
[2017-09-16] MEDS ORDERED: PIPERACILL/TAZOBAC IV 3.375 GM in DEXTROSE 5% 100ML 100 ML IV SCH (14:00)
--- NOTE | 2017-09-16 15:45 | Discharge Summary ---
Discharge Summary Date of Service September 16, 2017. Discharge Summary Admission Date: September 15, 2017 at 08:23 Principal Diagnosis: Illicit drug abuse, overdose, Problems/Secondary Diagnoses: History of bipolar, AGAINST MEDICAL ADVICE Immunizations: Have You Had Influenza Vaccine: Yes History of Tetanus Vaccine?: Yes History of Pneumococcal: No History of Hepatitis B Vaccine: No Procedures: No Consultations: Psychiatry Discharge Exam This morning when I see patient he was awake alert and oriented no complaint, left antecubital area local needle points mild red , which is better than yesterday Review of Systems: Constitutional: No fever, No chills, No sweats, No weight loss, No weakness , No fatigue, No problem reported Eyes: No worsening of vision, No eye pain, No redness, No discharge, No diplopia, No problem reported ENT: No hearing loss, No unusual epistaxis, No nasal symptoms, No sore throat, No tinnitus, No dental problems, No trouble swallowing, No problem reported Respiratory: No cough, No sputum, No wheezing, No shortness of breath, No dyspnea on exertion, No dyspnea at rest, No hemoptysis, No problem reported Cardiovascular: No chest pain, No orthopnea, No PND, No edema, No claudication, No palpitations, No problem reported Musculoskeletal: No joint pain, No muscle pain, No swelling, No calf pain, No problem reported Genitourinary - Male: No hematuria, No dysuria, No urinary frequency, No urinary urgency, No urinary hesitancy, No urinary retention, No urinary incontinence, No penile discharge, No lesions, No impotence, No problem reported Neurologic: No memory loss, No paralysis, No weakness, No numbness/tingling , No vertigo, No balance problems, No problem reported Psychiatric: No depression symptoms, No anhedonism, No anxiety, No insomnia , No substance abuse, No problem reported Endocrine: No fatigue, No excessive thirst, No excessive urination, No problem reported Integumentary: No rash, No itch, No new/changing skin lesions, No color change, No bleeding, No problem reported Physical Exam: General Appearance: WD/WN, no apparent distress Eyes: normal inspection, PERRL, EOMI ENT: normal ENT inspection, hearing grossly normal, TMs normal, pharynx normal Neck: supple, no adenopathy, thyroid normal, no JVD Respiratory/Chest: chest non-tender, lungs clear, normal breath sounds, no respiratory distress, no accessory muscle use Cardiovascular: regular rate, rhythm, no edema, no gallop, no JVD, no murmur , normal peripheral pulses Abdomen / GI: normal bowel sounds, non tender, soft, no organomegaly, no pulsatile mass, normal rectal exam Extremities: normal inspection, no calf tenderness, normal capillary refill , no pedal edema, normal range of motion Neurologic/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: 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, no motor/sensory deficits , alert, normal mood/affect, normal reflexes, oriented x 3 Skin: normal color, + pertinent finding ( left antecubital area local needle points mild red, no drainage) Hospital Course 27 yo M with Drug overdose, illicit drug abuse, track dozier in left antecubital area local needle points, mild red Has been admit to PCU, tele for monitoring due to elevated HR and BP Has been monitored troponin which is mildly elevated 0.063, likely due to tachycardia/demand ischemia, which is normal Has been continue ativan as needed for agitation Was on soft restraints, 1:1 sitter, no more need Has been IVFs, Tox screen was done , possible IV cocaine use. Etoh negative. Urine drug screening shows amphetamine, ecstasy and cocaine positive Psychiatry consulted, because of patient has bipolar Bipolar disorder currently stable Has been monitor for signs of withdrawal - Imaging reviewed; CXR WNL, CT abd WNL. - CT chest showing 17 x 16 x 7 mm groundglass pleural-based opacity within the right upper lobe anteriorly, likely atelectatic or inflammatory and Biapical blebs - incentive spirometry and flutter once awake, repeat imaging to show resolution ALEX totally resolved today Bipolar disorder, continue home medication DVT ppx: teds, no chemical ppx at this time CODE STATUS: Full Room time nursing staff called me patient want to leave, I told patient that against medical advice may cause permanent organ damage or even , patient is awake, alert and orientated x3, I believe patient is competent to make decision by self. patient fully understands and wants to take all risks by self. I also told patient that your medical condition is not ready for your doctor to discharge you to home. you need to go back to emergency room or call your primary care physician if changed mind and wants to be treated. PCP please follow-up Total Time Spent: Less than 30 minutes This includes examination of the patient, discharge planning, medication reconciliation, and communication with other providers. Discharge Instructions Please refer to the electronic Patient Visit Report (Discharge Instructions) for additional information. Additional Copies To Lux Salinas PA-C
[2017-09-16] MEDS ORDERED: VANCOMYCIN IV 1,000 MG in SODIUM CHLORIDE 0.9% 250ML 250 ML IV SCH (17:00)
[2017-09-17] MEDS ORDERED: VANCOMYCIN TROUGH ONE (08:30)
== END 2017-09-16 14:33 | disposition left against medical advice (07) | DRG 894 ==
LOC: EDUNIT# 04:46 → C.EDA 04:49 → C.2T 08:23 → ENRESERV 08:49 → EDBEDREQ 08:58
PROVIDERS: ADMIT Hospitalist; ATTEND Hospitalist
DX: F15.221 Other stimulant dependence with intoxication delirium (principal); M62.82 Rhabdomyolysis; L03.114 Cellulitis of left upper limb; N17.9 Acute kidney failure, unspecified; I24.8 Other forms of acute ischemic heart disease; F19.20 Other psychoactive substance dependence, uncomplicated; T40.5X1A Poisoning by cocaine, accidental (unintentional), initial encounter; R45.850 Homicidal ideations; R45.1 Restlessness and agitation; R00.0 Tachycardia, unspecified; E86.0 Dehydration; R79.89 Other specified abnormal findings of blood chemistry; F31.9 Bipolar disorder, unspecified; Z53.21 Procedure and treatment not carried out due to patient leaving prior to being seen by health care provider; Z78.1 Physical restraint status; Z23 Encounter for immunization; Z65.3 Problems related to other legal circumstances; Z91.5 Personal history of self-harm; Z87.891 Personal history of nicotine dependence; Z81.8 Family history of other mental and behavioral disorders; Z79.899 Other long term (current) drug therapy

== ENCOUNTER 2018-09-09 16:53 | Inpatient (IN) ==
--- OUTSIDE RECORDS SUMMARY | 2018-09-09 16:56 | External Medical Summary | Continuity of Care Document ---
:1990 Author Name Juan Braga Address Unavailable Unavailable , Care Team Providers Name Role Phone Angeli Oconnor M.D. Unavailable [email or web address] PCP, UNKNOWN Unavailable Unavailable Problems Active medical history not documented Allergies and Adverse Reactions Allergy history not documented Medications Medications not documented Procedures Procedures not documented Immunizations Immunizations not documented Plan of Treatment Planned Observations Planned Goals not documented Results No Known Results Results not documented
[2018-09-09] MEDS ORDERED: ONDANSETRON INJ 2 MG/ML 2 ML VIAL IV STA (17:20)
[2018-09-09] MEDS ORDERED: MoRPHine SULFATE 4 MG/ML 1 ML CARP\\VIAL IV STA (17:20)
[2018-09-09] MEDS ORDERED: SODIUM CHLORIDE 0.9% 1000ML 1,000 ML IV STA (17:20)
[2018-09-09 17:50] LABS: Basophils # (auto) 0.01 K/uL (0-0.2); Basophils % (auto) 0.1 %; Eosinophils # (auto) 0.03 K/uL (0-0.5); Eosinophils % (auto) 0.3 %; Hematocrit (blood only) 46.9 % (42-52); Hemoglobin 16.6 g/dL (14.0-18.0); Immature Granulocytes # (auto) 0.03 K/uL (0.00-0.02); Immature Granulocytes % (auto) 0.3 %; Lymphocytes % (auto) 14.1 %; Mean Corpuscular Hgb Conc 35.4 g/dL (32-36); Mean Corpuscular Volume 82.1 fL (80-100); Mean Platelet Volume 9.1 fL (7.4-10.4); Monocytes # (auto) 0.85 K/uL (0.11-0.59); Monocytes % (auto) 9.2 %; Neutrophils # (auto) 7.03 K/uL (1.4-6.5); Platelet Count 201 K/uL (130-400); RDW Coefficient of Variation 13.3 % (11.5-14.5); RDW Standard Deviation 39.9 fL (36.4-46.3); Red Blood Count 5.71 M/uL (4.7-6.1); White Blood Count 9.25 K/uL (4.8-10.8)
[2018-09-09 18:09] LABS: Albumin Level 4.7 gm/dl (3.4-5.0); BUN Creatinine Ratio 12.1 (10-20); Calcium 10.2 mg/dl (8.5-10.1); Creatinine Clr Calc Pharmacy 96.5 ml/min; Est GFR (African American) 108.4; Est GFR (Non-African American) 93.6; Potassium 3.1 mmol/L (3.5-5.1)
[2018-09-09 18:12] LABS: Albumin Globulin Ratio 1.6 (0.9-2); Bilirubin,Total 0.9 mg/dl (0.2-1); Globulin 2.9 gm/dl (2.5-4.0); Total Protein 7.6 gm/dl (6.4-8.2)
--- NOTE | 2018-09-09 18:12 | CT Scan Report ---
CT abd pelvis wo con CT DOSE: 284.12 mGy.cm HISTORY: Pain diffuse pain eval for perf/appe/stone TECHNIQUE: Multiaxial CT images of the abdomen and pelvis were performed without contrast. A dose lo wering technique was utilized adhering to the principles of ALARA. COMPARISON STUDY: 09/15/2017 FINDINGS: Extremely limited study technically due to the absence of intravenous and oral contrast. Moderate free fluid within the pelvis. Fluid-filled small bowel with incomplete delineation of bowel loops within the low pelvis. Kidneys negative for calcification or hydronephrosis. Liver spleen and pancreas are unremarkable. No evidence for free air or pneumatosis. Segments of the appendix are identified anterior to the righ t iliopsoas image 323 and 324. IMPRESSION: 1. Extremely limited study due to the absence of intraperitoneal fat as well as lack of contrast enha ncement.. 2. Fluid-filled distended small bowel with moderate to rather significant free fluid within the pelvi s and pelvic cul-de-sac. 3. No evidence for free air or pneumatosis. 4. This study should be repeated with intravenous and oral contrast for improved diagnostic evaluatio n. 5. The appendix appears to be identified at least in part and appears to be unremarkable within the v isualized segments. The above report was generated using voice recognition software. It may contain grammatical, syntax or spelling errors. Electronically signed by: Earnest Dacosta M.D. 09/09/2018 6:10 PM
[2018-09-09 19:01] LABS: Appearance Urine Clear (Clear); Bilirubin Urine Negative (Negative); Blood Urine Negative (Negative); Color Urine Yellow; Glucose Urine UA Negative (Negative); Ketones Urine 1+ (Negative); Leukocyte Esterase Urine Negative (Negative); Nitrite Urine Negative (Negative); Protein Urine Negative (Negative); Specific Gravity Urine 1.017 (1.000-1.030); Urobilinogen Urine Negative (Negative); pH Urine >= 9.0 (4.5-7.5)
--- NOTE | 2018-09-09 19:07 | Surgery Consultation ---
Date of Consultation September 09, 2018 Assessment & Plan (1) Small bowel obstruction: I do not feel the patient has an acute surgical abdomen. It does not appear he has appendicitis. He is dehydrated had some improvement with rehydration. I do feel he should be admitted for observation and mild pain medication and antiemetics. There may be consideration of antibiotics though his white blood cell count is normal. I will closely monitor him and if there is no improvement we may consider laparoscopy. The ER is now trying to give the patient oral contrast for rescanning. He may not tolerate the contrast and therefore there would be no reason to rescan the patient. At the present time this appears to be more of an enteritis and a mechanical obstruction. History of Present Illness History of Present Illness Patient is in the emergency room with a history of 2 to 3 days of abdominal pain nausea and vomiting resenting with dehydration. He underwent a CAT scan without contrast which does show some dilated small bowel and low in the pelvis without evidence of any specific abscess or evidence of appendicitis. His pain is somewhat nonspecific bilateral in nature. He says he feels much better since being given fluids in the emergency room. His urine output is excellent. His white blood cell count is normal he is afebrile. Allergies Allergy/AdvReac Type Severity Reaction Status Date / Time No Known Allergies Allergy Mild none Unverified 09/09/18 18:24 Home Medications Home Medications Medication Instructions Recorded Confirmed Type carbamazepine [Tegretol] 700 mg PO BID 09/09/18 09/09/18 History fluoxetine 80 mg PO QAM 09/09/18 09/09/18 History hydroxyzine HCl 25 mg PO BID 09/09/18 09/09/18 History hydroxyzine HCl 150 mg PO HS 09/09/18 09/09/18 History lamotrigine [Lamictal] 100 mg PO QPM 09/09/18 09/09/18 History naltrexone microspheres [Vivitrol] 380 mg IM Q4WK 09/09/18 09/09/18 History Patient History Medical History Asthma Drug overdose (Resolved) Surgical History No significant past surgical history Social History Preferred Language: Swiss Feels Safe at Home: Yes Smoking Status: Current every day smoker Hx Substance Use: Yes Review of Systems Review of Systems: All systems reviewed & are unremarkable except as noted in HPI & below Physical Exam Physical Exam: Patient is awake and alert and very responsive. He appears to be in no distress he has a relatively upbeat affect. Does not appear to be toxic. He is not significantly tachycardic. His head appears to be atraumatic sclera anicteric neck is supple. He is in no respiratory distress. His heart rate is regular. His abdomen is flat it is not significantly distended. I could not elicit specific percussive tenderness or tenderness that would indicate peritoneal irritation. His extremities are warm. He did have a very small bout of emesis in a bag appeared to be very clear mildly bilious. Results & Data Vital Signs (Past 12 Hours) Vital Signs Temp Pulse Pulse Resp BP BP Pulse Ox 09/09/18 18:14 74 20 137/87 100 09/09/18 17:47 71 20 149/85 H 100 09/09/18 17:11 36.9 C 96 H 18 120/87 100 I did review his CAT scan and discussed it with the radiologist.
[2018-09-09] MEDS ORDERED: ONDANSETRON INJ 2 MG/ML 2 ML VIAL ONE (20:36)
[2018-09-09] MEDS ORDERED: cefOXitin 2,000 MG in DEXTROSE 5% 50 ML IV STA (22:28)
[2018-09-09] MEDS ORDERED: BUPIVACAINE 0.5 % 5 MG/1 ML MPF 30ML VIAL ONE (22:30)
[2018-09-09] MEDS ORDERED: cefOXitin 2,000 MG in DEXTROSE 5% 50 ML IV SCH (23:00)
--- NOTE | 2018-09-09 23:13 | Anesthesiology Consultation ---
Date of Service September 09, 2018 Assessment & Plan Chart Review Chart Review: Acceptable Risk for Surgery Consults Requested none History Surgery Operation Date: 09/09/18 23:00 Proposed Procedures p Laparoscopic Bowel Resection - Loy Jurado MD, FACS s Exploratory Laparotomy - Loy Jurado MD, FACS Height/Weight Height: 6 ft 3 in Weight: 66.4 kg Allergies Allergy/AdvReac Type Severity Reaction Status Date / Time No Known Allergies Allergy Mild none Unverified 09/09/18 18:24 Medications Home Medications Medication Instructions Recorded Confirmed Last Taken carbamazepine [Tegretol] 700 mg PO BID 09/09/18 09/09/18 Unknown fluoxetine 80 mg PO QAM 09/09/18 09/09/18 Unknown hydroxyzine HCl 25 mg PO BID 09/09/18 09/09/18 Unknown hydroxyzine HCl 150 mg PO HS 09/09/18 09/09/18 Unknown lamotrigine [Lamictal] 100 mg PO QPM 09/09/18 09/09/18 Unknown naltrexone microspheres [Vivitrol] 380 mg IM Q4WK 09/09/18 09/09/18 Unknown NPO Date Last Intake of Fluids: 09/09/18 Time Last Intake of Fluids: 09:40 Last Intake of Fluids Comment: CT Contrast Date Last Intake of Solids: 09/09/18 Time Last Intake of Solids: 11:30 Last Intake of Solids Comment: fries Past Medical History Medical History Asthma Drug overdose (Resolved) Past Surgical History Surgical History No significant past surgical history Social History Smoking Status: Current every day smoker Hx Substance Use: Yes Physical Exam Vital Signs Last Vital Signs Temp 36.9 C 09/09/18 17:11 Pulse 76 09/09/18 20:38 Resp 18 09/09/18 20:38 BP 151/93 H 09/09/18 20:38 Pulse Ox 98 09/09/18 20:38 Testing Laboratory Results 09/09/18 17:36 09/09/18 17:36 Urine Color Yellow 09/09/18 18:52 Urine Appearance Clear (Clear) 09/09/18 18:52 Urine pH >= 9.0 (4.5-7.5) H 09/09/18 18:52 Ur Specific [place] 1.017 (1.000-1.030) 09/09/18 18:52 Urine Protein Negative (Negative) 09/09/18 18:52 Urine Glucose (UA) Negative (Negative) 09/09/18 18:52 Urine Ketones 1+ (Negative) H 09/09/18 18:52 Urine Nitrite Negative (Negative) 09/09/18 18:52 Ur Leukocyte Esterase Negative (Negative) 09/09/18 18:52
[2018-09-09] MEDS ORDERED: HYDROmorphone INJ 2 MG/ML SYR/VIAL IV PRN (23:16)
[2018-09-09] MEDS ORDERED: DEXAMETHASONE SOD INJ 4 MG/ML VIAL IV PRN (23:16)
[2018-09-09] MEDS ORDERED: KETOROLAC 30 MG/ML VIAL IV PRN (23:16)
[2018-09-09] MEDS ORDERED: ATROPINE SULFATE 0.1 MG/ML 10ML SYR IV PRN (23:16)
[2018-09-09] MEDS ORDERED: ePHEDrine sulfate 50 MG/ML AMP IV PRN (23:16)
[2018-09-09] MEDS ORDERED: ONDANSETRON INJ 2 MG/ML 2 ML VIAL IV PRN (23:16)
[2018-09-09] MEDS ORDERED: fentaNYL citrate 100 MCG/2 ML VIAL ONE (23:18)
[2018-09-09] MEDS ORDERED: MIDAZOLAM HCL 1 MG/ML 2ML VIAL ONE (23:34)
[2018-09-10] MEDS ORDERED: ROCURONIUM BROMIDE 10 MG/ML 5 ML VIAL ONE ×5 (00:53→00:54)
[2018-09-10] MEDS ORDERED: PROPOFOL IV EMULSION 10 MG/ML 20 ML VIAL IV ONE (00:53)
[2018-09-10] MEDS ORDERED: SUCCINYLCHOLINE CHLORIDE 20 MG/ML 10 ML VIAL ONE (00:53)
[2018-09-10] MEDS ORDERED: DEXAMETHASONE SOD INJ 4 MG/ML VIAL ONE (00:54)
[2018-09-10] MEDS ORDERED: NEOSTIGMINE METHYLSULFATE 5 MG/5 ML SYR ONE (00:54)
[2018-09-10] MEDS ORDERED: LIDOCAINE HCL 2% 2 ML VIAL/AMP(20MG/ML) INFIL ONE (00:54)
[2018-09-10] MEDS ORDERED: GLYCOPYRROLATE 0.2 MG/ML VIAL ONE (00:54)
[2018-09-10] MEDS ORDERED: ONDANSETRON INJ 2 MG/ML 2 ML VIAL ONE (00:54)
[2018-09-10] MEDS ORDERED: HYDROmorphone INJ 2 MG/ML SYR/VIAL ONE (01:18)
--- NOTE | 2018-09-10 01:39 | Emergency Department Note ---
Entered by Marti Puentes acting as a scribe for History of Present Illness General Chief complaint: Abdominal Pain Stated complaint: VOMITING, ABDOMINAL PAIN, LOW GRADE FEVER, WEAK Source: patient Mode of arrival: ambulatory Limitations: no limitations History of Present Illness Provider complaint: abdominal pain Onset (ago): day(s) 3 Location: abdomen Radiation: back Pain Consistency: + other (persistent) Maximum Pain Intensity: 6 Quality: + stabbing Associated symptoms: + denies other symptoms (urinary), + fever/chills, + nausea/vomiting and + other (diarrhea) The patient is a 28 year old male who presents to the ER with complaints of a persistent abdominal pain that began 3 days ago. The patient reports that the pain is located in his lower abdomen and that at times it radiates to his back. He describes the pain as a stabbing pain. He states that he had a temperature of 99 F earlier today and that he has not been able to keep anything down for the past 3 days. He notes that he has been vomiting. He denies a history of kidney stones as well as any surgeries but notes he does have asthma. He denies any urinary symptoms. He does state he has not had a bowel movement in 2 and half days but he has not been able to keep anything down. Home Medications Home Medications Medication Instructions Recorded Confirmed Type carbamazepine [Tegretol] 700 mg PO BID 09/09/18 09/09/18 History fluoxetine 80 mg PO QAM 09/09/18 09/09/18 History hydroxyzine HCl 25 mg PO BID 09/09/18 09/09/18 History hydroxyzine HCl 150 mg PO HS 09/09/18 09/09/18 History lamotrigine [Lamictal] 100 mg PO QPM 09/09/18 09/09/18 History naltrexone microspheres [Vivitrol] 380 mg IM Q4WK 09/09/18 09/09/18 History Allergies Allergy/AdvReac Type Severity Reaction Status Date / Time No Known Allergies Allergy Mild none Unverified 09/09/18 18:24 Past Med/Surg History Medical History Asthma Drug overdose (Resolved) Surgical History No significant past surgical history Social History Preferred Language: Mongolian Feels Safe at Home: Yes Smoking Status: Current every day smoker Hx Substance Use: Yes Review of Systems See HPI for pertinent positives & negatives. and A total of 10 systems reviewed and were otherwise negative Physical Exam Vital Signs Vital Signs - 24 hr 09/09/18 17:11 09/09/18 17:47 09/09/18 18:14 Temperature 36.9 C Temperature Source Oral Sepsis Recent Fever Within 48 Hours No Sepsis Action Taken by Nursing No Action Required Pulse Rate 96 H Pulse Rate [Finger] 71 74 Respiratory Rate 18 20 20 Respiratory Effort / Characteristics Non-Labored Spontaneous Respiratory Depth Normal Respiratory Pattern Regular Blood Pressure 120/87 Blood Pressure [Right Arm] 149/85 H 137/87 Blood Pressure Mean 98 Blood Pressure Mean [Right Arm] 106 103 Pulse Oximetry 100 100 100 Oxygen Delivery Method Room Air Room Air Room Air 09/09/18 20:38 Temperature Temperature Source Sepsis Recent Fever Within 48 Hours Sepsis Action Taken by Nursing Pulse Rate Pulse Rate [Finger] 76 Respiratory Rate 18 Respiratory Effort / Characteristics Respiratory Depth Respiratory Pattern Blood Pressure Blood Pressure [Right Arm] 151/93 H Blood Pressure Mean Blood Pressure Mean [Right Arm] 112 Pulse Oximetry 98 Oxygen Delivery Method Room Air Constitutional: Vital signs reviewed. Eyes: Pupils are equal round reactive to light. Conjunctiva are noninjected. ENT: Pharynx is clear without erythema or exudate. Mucous membranes are dry. Neck supple without meningeal signs. Respiratory: Clear to auscultation bilaterally. Breath sounds are equal bilaterally. Cardiovascular: Regular rate and rhythm. No rubs or gallops. GI: Soft and nondistended. Diffuse abdominal tenderness with voluntary guarding, worse on the right side. Bowel sounds are present. Musculoskeletal: No peripheral edema. No lower extremity tenderness. Integumentary: No cyanosis. Neurological: The patient is awake and alert. No focal deficits. Psychiatric: Normal affect. Course 1717: The patient was evaluated in room C4, and a complete history and physical examination were performed. 0: I discussed the patients imaging with Dr. Dacosta Radiology. He reports that it appears to be a SBO but that he cannot see exactly why. 1831: I reevaluated the patient and on exam there is still some diffuse tenderness but no guarding. The patient states that it does not hurt now unless you press on it. 1836: I discussed the patients case with Dr. Jurado General Surgery. He will come evaluate the patient. 1849: Dr. Jurado evaluated the patient and states he feels he does not need to be taken to the OR immediately. He recommends hospitalization. 1855: I spoke to the patient about the plan to admit and he is attempting to drink contrast. 1920: I discussed the patient's case with Dr. Araujo - [facility] Hospitalist. He will evaluate the patient for further management. 2199: The patient threw up his contrast. Dr. Jurado talked to Radiology and cancelled the CT scan. 2218: Dr. Jurado will be taking the patient to the OR. Administered Medications Discontinued Medications Sodium Chloride (Nss 1000ml) 1,000 mls @ 999 mls/hr IV .Q1H1M STA Stop: 09/09/18 18:20 Last Infusion: 09/09/18 18:51 Dose: 0 mls/hr Documented by: [id number] Admin: 09/09/18 17:45 Dose: 999 mls/hr Documented by: [id number] Cefoxitin Sodium 2,000 mg/ (Dextrose) 60 mls @ 120 mls/hr IV TODAY@2300 RYAN Stop: 09/09/18 23:29 Last Admin: 09/09/18 23:58 Dose: 120 mls/hr Documented by: [id number] Morphine Sulfate (Morphine Sulfate) 4 mg IV NOW STA Stop: 09/09/18 17:21 Last Admin: 09/09/18 17:44 Dose: 4 mg Documented by: [id number] Ondansetron HCl (Zofran) 4 mg IV NOW STA Stop: 09/09/18 17:21 Last Admin: 09/09/18 17:45 Dose: 4 mg Documented by: [id number] Ondansetron HCl (Zofran) Confirm Administered Dose 4 mg .ROUTE .STK-MED ONE Stop: 09/09/18 20:37 Last Admin: 09/09/18 20:36 Dose: 4 mg Documented by: [id number] Medical Decision Making Differential Diagnosis Differential diagnosis includes: kidney stones, UTI, bowel perforation, pyelonephritis, and appendicitis. Medical Records Attestation: I reviewed the patient's medical records. The patient was evaluated at this hospital in September of 2017 for illicit drug abuse and overdose. Home Medications Current Medication List: was personally reviewed by me Laboratory Data Attestation: I reviewed the patient's lab results. Result diagrams: 09/09/18 17:36 09/09/18 17:36 Lab Results 09/09/18 09/09/18 09/09/18 Range/Units 17:36 17:36 18:52 WBC 9.25 (4.8-10.8) K/uL RBC 5.71 (4.7-6.1) M/uL Hgb 16.6 (14.0-18.0) g/dL Hct 46.9 (42-52) % MCV 82.1 (80-100) fL MCH 29.1 (25-34) pg MCHC 35.4 (32-36) g/dL RDW Std Deviation 39.9 (36.4-46.3) fL RDW Coeff of Bartolo 13.3 (11.5-14.5) % Plt Count 201 (130-400) K/uL MPV 9.1 (7.4-10.4) fL Immature Gran % (Auto) 0.3 % Neut % (Auto) 76.0 % Lymph % (Auto) 14.1 % [place] % (Auto) 9.2 % Eos % (Auto) 0.3 % Baso % (Auto) 0.1 % Immature Gran # (Auto) 0.03 H (0.00-0.02) K/uL Neut # (Auto) 7.03 H (1.4-6.5) K/uL Lymph # (Auto) 1.30 (1.2-3.4) K/uL [place] # (Auto) 0.85 H (0.11-0.59) K/uL Eos # (Auto) 0.03 (0-0.5) K/uL Baso # (Auto) 0.01 (0-0.2) K/uL Sodium 136 (136-145) mmol/L Potassium 3.1 L (3.5-5.1) mmol/L Chloride 100 (98-107) mmol/L Carbon Dioxide 26 (21-32) mmol/L Anion Gap 11.0 (3-11) BUN 13 (7-18) mg/dl Creatinine 1.08 (0.6-1.4) mg/dl Est Cr Clr Drug Dosing 96.5 ml/min Est GFR ( Amer) 108.4 Est GFR (Non-Af Amer) 93.6 BUN/Creatinine Ratio 12.1 (10-20) Glucose 107 H (70-99) mg/dl Calcium 10.2 H (8.5-10.1) mg/dl Total Bilirubin 0.9 (0.2-1) mg/dl AST 19 (15-37) U/L ALT 23 (12-78) U/L Alkaline Phosphatase 117 (45-117) U/L Total Protein 7.6 (6.4-8.2) gm/dl Albumin 4.7 (3.4-5.0) gm/dl Globulin 2.9 (2.5-4.0) gm/dl Albumin/Globulin Ratio 1.6 (0.9-2) Lipase 68 L (73-393) U/L Urine Color Yellow Urine Appearance Clear (Clear) Urine pH >= 9.0 H (4.5-7.5) Ur Specific Gard[place] 1.017 (1.000-1.030) Urine Protein Negative (Negative) Urine Glucose (UA) Negative (Negative) Urine Ketones 1+ H (Negative) Urine Blood Negative (Negative) Urine Nitrite Negative (Negative) Urine Bilirubin Negative (Negative) Urine Urobilinogen Negative (Negative) Ur Leukocyte Esterase Negative (Negative) Imaging Data Radiologist's Impression: Radiology results as stated below per my review and the radiologist's interpretation: CT abd pelvis wo con CT DOSE: 284.12 mGy.cm HISTORY: Pain diffuse pain eval for perf/appe/stone TECHNIQUE: Multiaxial CT images of the abdomen and pelvis were performed without contrast. A dose lowering technique was utilized adhering to the principles of ALARA. COMPARISON STUDY: 09/15/2017 FINDINGS: Extremely limited study technically due to the absence of intravenous and oral contrast. Moderate free fluid within the pelvis. Fluid-filled small bowel with incomplete delineation of bowel loops within the low pelvis. Kidneys negative for calcification or hydronephrosis. Liver spleen and pancreas are unremarkable. No evidence for free air or pneumatosis. Segments of the appendix are identified anterior to the right iliopsoas image 323 and 324. IMPRESSION: 1. Extremely limited study due to the absence of intraperitoneal fat as well as lack of contrast enhancement.. 2. Fluid-filled distended small bowel with moderate to rather significant free fluid within the pelvis and pelvic cul-de-sac. 3. No evidence for free air or pneumatosis. 4. This study should be repeated with intravenous and oral contrast for improved diagnostic evaluation. 5. The appendix appears to be identified at least in part and appears to be unremarkable within the visualized segments. The above report was generated using voice recognition software. It may contain grammatical, syntax or spelling errors. Electronically signed by: Earnest Dacosta M.D. 09/09/2018 6:10 PM Blood Pressure Blood Pressure Findings: Normal blood pressure Blood Pressure Disposition: did not require urgent referral MDM Narrative I did evaluate the patient as noted above. The patient is presenting with bilateral abdominal pain. He has voluntary guarding and significant tenderness on examination. I was concerned about possible perforation versus kidney stone. IV access was established. The patient was placed on a continuous brass wind instruments tube bender. I did treat the patient with normal saline IV. I also treated him with IV morphine and Zofran. I did order a urine analysis. There is no evidence of blood or infection. I did order and review the patient's blood work as noted in the electronic medical record. His white blood cell count is not elevated. He does have hypokalemia. I did order a CT of the abdomen and pelvis . I did review the images myself as well as the radiology report as described above. This demonstrated small bowel obstruction and free fluid in the pelvis. No free air was noted. I did speak to the radiologist about this. He stated that the exam was very limited as the patient did not have any contrast. I therefore ordered a repeat CT with contrast after speaking to the patient and his family. The patient is feeling much better on reexamination hurts when I press on it. He does have diffuse tenderness on exam but no guarding at this time. I did also consult Dr. Jurado of surgery who evaluated the patient. He felt that the patient was stable for admission to the hospital and he would reassess him closely. He recommended patient be admitted to the hospitalist. I did discuss case with the hospitalist and mental health case manager. The patient was unable to drink the contrast for the CT and threw it up. Dr. Jurado spoke to the radiologist and canceled the CT. The patient had worsening pain and so Dr. Jurado took him to the OR for further evaluation. Impression & Plan Small bowel obstruction, Acute hypokalemia, Free fluid in pelvis Discharge Plan Visit Data *Final* Discharge Date/Time: 05/01/19 22:24 Chief Complaint: Abdominal Pain Stated Complaint: VOMITING, ABDOMINAL PAIN, LOW GRADE FEVER, WEAK ED Provider: Conrad Bourgeois Discharge Problem: Small bowel obstruction, Acute hypokalemia, Free fluid in pelvis Patient Disposition: Admitted As Inpatient Discharge Instructions Interventions: ED Discharge Assessment Last Done: 09/09/18 22:24 The scribe's documentation has been prepared under my direction and personally reviewed by me in its entirety. I confirm that the note above accurately reflects all work, treatment, procedures, and medical decision making performed by me.
[2018-09-10] MEDS ORDERED: ACETAMINOPHEN 1,000 MG/100 ML VIAL IV ONE (01:44)
--- NOTE | 2018-09-10 01:44 | Operative Report ---
Post Operative Report Pre & Post Diagnosis Operation Date: 09/09/18 23:00 <No data on this case meets the specified criteria> bowel obstruction from foreign body Procedure Operation Date: 09/09/18 23:00 Actual Procedures p Diagnostic Laparoscopy - Loy Jurado MD, FACS s Exploratory Laparotomy - Loy Jurdao MD, FACS small bowel resection, w/ anastomosis Surgeon Loy Jurado MD, FACS Filter Assembler nurses Estimated Blood Loss 20 Findings Consistent with Post-Op Diagnosis Specimens small bowel Description of Procedure see dictation I attest to the content of the Intraoperative Record and any orders documented therein. Any exceptions are noted below.
[2018-09-10] MEDS ORDERED: fentaNYL citrate 100 MCG/2 ML VIAL ONE (02:02)
[2018-09-10] MEDS: fentaNYL citrate 100 MCG/2 ML VIAL IV PRN ×2 (02:04→02:14)
--- NOTE | 2018-09-10 02:11 | Operative Report ---
DATE OF OPERATION: 09/10/2018 NAME OF OPERATION: Diagnostic laparoscopy with laparotomy and small bowel resection with anastomosis. PREOPERATIVE DIAGNOSIS: Small-bowel obstruction. POSTOPERATIVE DIAGNOSIS: Small-bowel obstruction with foreign body. STAFF SURGEON: Dr. Jurado. SOUND ART INSTRUCTOR: Nurses. ANESTHESIA: General. PROCEDURE: The patient was brought in the operating room and placed on the operating table in supine position. Pneumatic stockings nasogastric tube and Peterson catheter were placed. His abdomen was prepped and draped in usual fashion. Marcaine 0.5% plain was used to anesthetize the laparoscopic incisions. Incision was made above the umbilicus, carrying dissection down to the fascia, placing a Veress needle producing pneumoperitoneum. An 11 mm port was placed at this level and then under visualization two 5 mm ports were placed, 1 right and left lateral. The cecum was identified. The ileum was then traced from the cecum proximally. The majority of the ileum was normal to the area of the jejunum where it became dilated and somewhat friable and hyperemic and then I encountered an area where it appeared that there was a mass within the small bowel. At this point, we converted to an open procedure. We made a lower midline incision below the umbilicus, carrying dissection down into the abdomen. On tracing the small bowel it appeared that in the jejunum there was a relatively long 6-8 cm segment with a foreign body obstructing the small bowel. It was apparent to me that this would need to be resected. The small bowel then was resected both ends transected using a PATRICK 60 stapler. The mesentery then transected using 2-0 silk suture and the LigaSure. The ends of the bowel were oversewn using 3-0 silk suture. Then [id number] anastomosis performed using a PATRICK 60 stapler. The inside staple line at the mucosa was bleeding. It was oversewn using 2-0 chromic suture. The enteric defect closed in 2 layers. The mucosal layer of 2-0 chromic suture and then the seromuscular layer of 3-0 silk suture. Mesenteric defect closed using 2-0 chromic suture. At this point, the remainder of the bowel appeared to be normal, but the obstructed portion was dilated and mildly hyperemic completely viable. There were no other significant abnormalities noted in the abdomen. The abdomen was irrigated. There was significant ascites in the pelvis as been seen on CAT scan. The peritoneum was reapproximated using #1 chromic suture. The fascia reapproximated using #1 PDS suture. Quarter inch Rut drain placed in the subcutaneous space, secured using 4-0 nylon suture. Skin reapproximated using kaylene and then the laparoscopy sites closed using subcuticular 4-0 Monocryl and then Steri-Strips and Dermabond. The patient was transferred to recovery room in stable condition. I attest to the content of the Intraoperative Record and any orders documented therein. Any exception s are noted below.
--- NOTE | 2018-09-10 02:52 | Anesthesiology Progress Note ---
Date of Service September 10, 2018 Anesthesia Post Procedure Vital Signs Vital Signs: Temp Pulse Pulse Resp BP BP Pulse Ox 09/09/18 20:38 76 18 151/93 H 98 09/09/18 18:14 74 20 137/87 100 09/09/18 17:47 71 20 149/85 H 100 09/09/18 17:11 36.9 C 96 H 18 120/87 100 Pain Intensity Abdomen: Pain Intensity: 8 Transfer of Care Handoff Completed per policy Notes Mental Status: alert / awake / arousable and participated in evaluation Patient Amnestic to Procedure: Yes Nausea / Vomiting: adequately controlled Pain: adequately controlled Airway Patency, RR, SpO2: stable & adequate BP & HR: stable & adequate Hydration State: stable & adequate Anesthetic Complications: no major complications apparent
[2018-09-10] MEDS ORDERED: HYDROmorphone INJ 1 MG/ML SYRINGE IV PRN (03:19)
[2018-09-10] MEDS ORDERED: PROMETHAZINE HCL 25 MG in SODIUM CHLORIDE 0.9% 50 ML IV PRN (03:19)
[2018-09-10] MEDS ORDERED: HYDROmorphone INJ 2 MG/ML SYR/VIAL IV PRN (03:19)
[2018-09-10] MEDS ORDERED: ONDANSETRON INJ 2 MG/ML 2 ML VIAL IV PRN (03:19)
[2018-09-10] MEDS ORDERED: HYDROmorphone INJ 0.5 MG/0.5 ML SYR IV PRN (03:19)
[2018-09-10] MEDS ORDERED: PROMETHAZINE HCL 12.5 MG in SODIUM CHLORIDE 0.9% 50 ML IV PRN (03:19)
[2018-09-10 05:36] LABS: Basophils # (auto) 0.01 K/uL (0-0.2); Basophils % (auto) 0.1 %; Eosinophils # (auto) 0.01 K/uL (0-0.5); Eosinophils % (auto) 0.1 %; Hematocrit (blood only) 43.5 % (42-52); Hemoglobin 15.1 g/dL (14.0-18.0); Immature Granulocytes # (auto) 0.02 K/uL (0.00-0.02); Immature Granulocytes % (auto) 0.2 %; Lymphocytes # (auto) 0.77 K/uL (1.2-3.4); Lymphocytes % (auto) 6.5 %; Mean Corpuscular Hgb Conc 34.7 g/dL (32-36); Monocytes # (auto) 0.94 K/uL (0.11-0.59); Monocytes % (auto) 7.9 %; Neutrophils # (auto) 10.15 K/uL (1.4-6.5); Neutrophils % (auto) 85.2 %; Platelet Count 180 K/uL (130-400); RDW Coefficient of Variation 13.5 % (11.5-14.5); Red Blood Count 5.24 M/uL (4.7-6.1)
[2018-09-10 05:53] LABS: INR 1.2 (0.9-1.1)
[2018-09-10 06:26] LABS: Albumin Level 3.7 gm/dl (3.4-5.0); Calcium 8.5 mg/dl (8.5-10.1); Creatinine Clr Calc Pharmacy 108.6 ml/min; Est GFR (Non-African American) 107.9; Magnesium 1.8 mg/dl (1.8-2.4); Potassium 3.4 mmol/L (3.5-5.1)
[2018-09-10 06:31] LABS: Albumin Globulin Ratio 1.3 (0.9-2); Bilirubin,Total 0.7 mg/dl (0.2-1); Globulin 2.9 gm/dl (2.5-4.0); Phosphorus 3.9 mg/dl (2.5-4.9); Total Protein 6.6 gm/dl (6.4-8.2)
[2018-09-10] MEDS ORDERED: NALOXONE HCL 0.4 MG/1 ML VIAL/CARP IV PRN (06:43)
[2018-09-10] MEDS: HYDROmorphone HCL 0.5MG/ML 50 ML CASSETTE IV PRN ×3 (08:18→23:04)
[2018-09-10] MEDS: D5NSS + 20MEQ KCL 20 MEQ/1,000 ML BAG IV SCH ×2 (08:18→18:32)
[2018-09-10] MEDS: SODIUM CHLORIDE 0.9% 1000ML IV SCH (08:29)
[2018-09-10] MEDS: HEPARIN SOD 5,000 UNIT/0.5 ML VIAL SQ SCH ×2 (09:13→21:31)
[2018-09-10 10:08] LABS: Eosinophils # (auto) 0.04 K/uL (0-0.5); Eosinophils % (auto) 0.5 %; Hematocrit (blood only) 42.5 % (42-52); Hemoglobin 14.7 g/dL (14.0-18.0); Immature Granulocytes # (auto) 0.01 K/uL (0.00-0.02); Immature Granulocytes % (auto) 0.1 %; Lymphocytes % (auto) 6.6 %; Mean Corpuscular Hgb Conc 34.6 g/dL (32-36); Mean Corpuscular Volume 83.2 fL (80-100); Mean Platelet Volume 8.9 fL (7.4-10.4); Monocytes # (auto) 0.83 K/uL (0.11-0.59); Neutrophils # (auto) 6.16 K/uL (1.4-6.5); Neutrophils % (auto) 81.8 %; Platelet Count 167 K/uL (130-400); RDW Coefficient of Variation 13.6 % (11.5-14.5); RDW Standard Deviation 41.3 fL (36.4-46.3); Red Blood Count 5.11 M/uL (4.7-6.1); White Blood Count 7.54 K/uL (4.8-10.8)
[2018-09-10 10:36] LABS: Albumin Level 3.6 gm/dl (3.4-5.0); BUN Creatinine Ratio 15.2 (10-20); Calcium 8.1 mg/dl (8.5-10.1); Creatinine Clr Calc Pharmacy 113.3 ml/min; Est GFR (African American) 131.6; Est GFR (Non-African American) 113.6; Potassium 3.4 mmol/L (3.5-5.1)
[2018-09-10 10:39] LABS: Albumin Globulin Ratio 1.3 (0.9-2); Bilirubin,Total 0.6 mg/dl (0.2-1); Globulin 2.7 gm/dl (2.5-4.0); Phosphorus 3.4 mg/dl (2.5-4.9); Total Protein 6.3 gm/dl (6.4-8.2)
[2018-09-10] MEDS ORDERED: ACETAMINOPHEN 1,000 MG/100 ML VIAL IV PRN (11:58)
--- NOTE | 2018-09-10 12:10 | Consultation ---
Date of Consultation September 10, 2018 Assessment & Plan (1) Small bowel obstruction: - S/P Ex Lap with open conversion and bowel resection with anastamosis; evidence of foreign body? - Reports feeling much better but continues with abdominal pain; Continue Dilaudid JOINT SETTER and titrate per protocol -- Pt hitting the button numerous times during my visit - current settings at Q10M; Will add Tylenol 1000 mg IV Q8H PRN and could consider Toradol PRN is okay with surgery - NPO at this time - patient reports he drank about a whole Gatorade and tolerated this? seems he did this after the NGT pulled? Reinforced the importance of NPO as he denies passing flatus and needs bowel rest - Cefoxitin 1 g IV Q6H - DVT Prophylaxis - Heparin BID Present on Admission?: Yes (2) Asthma: - Well controlled - no signs of exacerbation at this time; Will monitor Present on Admission?: Yes (3) Bipolar disorder: - Also carries a diagnosis of ADHD; Does appear distracted and anxious but mentating appropriately - Hold home medications of Tegretol 700 mg BID, Fluoxetine 80 mg daily; Vistaril 25 mg BID and 150 mg HS, and Lamictal 100 mg daily until tolerating diet Present on Admission?: Yes (4) Polysubstance abuse: - Has a previous admission for issues related to use of methaphetamines/cocaine - very distracted with pain and need for additional pain medication during my visit; also with multiple family members at bedside. - Will try and meet with patient to discuss this privately to assess for continued use of substances - for now should watch for any signs of withdrawal until sobriety is assessed - Currently does not appear to be withdrawing at this time but does appear anxious and fidgeting - will monitor Present on Admission?: Yes History of Present Illness Mr. Bender is a 28 y/o male with PMHx of Asthma, Bipolar Disorder, ADHD, and Polysubstance Abuse who presented to the ED for severe abdominal pain with emesis. He went for ex lap with open conversion and bowel resection with anastomosis with a foreign body noted. Patient is accompanied by his grandmother and girlfriend at bedside. Patient is slightly fidgeting in bed and appears slightly anxious. Fixated on pain control at this time and therefore limited history was obtained. He is currently on a JOINT SETTER and frequently pressing the button during my visit. He would like something stronger directly into the IV site. However, with conversation and distraction does appear comfortable. Admits that his pain is much more manageable then it currently was. States he wants something stronger so he can get up and walk. He would also like food now that he is not vomiting. However, explained the importance of no intake at this time but states he drank almost a whole Gatorade without vomiting. He denies passing flatus or having bowel movements. BS are rather absent and reinforced the importance of NPO at this time. Patient has a H/O polysubstance abuse with an admission approx. one year ago for a drug overdose with positive tox screen for methamphetamines and cocaine. Does not appear to be actively withdrawing at this time from a substance but due to fixation and family present did not obtain a drug history. Will attempt to discuss with him when his pain is better controlled but should be mindful of possibility of withdraw as we are uncertain of his sobriety. Attending Physician: Loy Jurado MD, FACS Allergies Allergy/AdvReac Type Severity Reaction Status Date / Time No Known Allergies Allergy Mild none Unverified 09/09/18 18:24 Home Medications Home Medications Medication Instructions Recorded Confirmed Type carbamazepine [Tegretol] 700 mg PO BID 09/09/18 09/09/18 History fluoxetine 80 mg PO QAM 09/09/18 09/09/18 History hydroxyzine HCl 25 mg PO BID 09/09/18 09/09/18 History hydroxyzine HCl 150 mg PO HS 09/09/18 09/09/18 History lamotrigine [Lamictal] 100 mg PO QPM 09/09/18 09/09/18 History naltrexone microspheres [Vivitrol] 380 mg IM Q4WK 09/09/18 09/09/18 History Patient History Medical History Asthma (Chronic) Drug overdose (Resolved) Surgical History No significant past surgical history Family History Other Family history non-contributory Social History Preferred Language: Upper Sorbian Communication Ability: Effective Secondary School Teacher Required: No Beliefs That Will Affect Care: None Current Living Situation: Family Current Living Situation Comment: Lives with family Other Information That Helps Us Care for You: No Feels Safe at Home: Yes Safety Concerns: Feels Safe At This Time Smoking Status: Current every day smoker Tobacco Type: cigarettes Cigarettes Per Day: 4 Do You Dip or Chew Tobacco: Yes Second Hand Exposure: Yes Hx Alcohol Use: Yes Alcohol type: beer Hx Substance Use: Yes substance use type: heroin and methamphetamine Last Used Substance: Days (ago) Last Used Substance Other:: last drugs used 1 year ago per patient Review of Systems Constitutional: no fever and no chills Ear, Nose, Mouth, Throat: no nasal congestion, no sore throat and no dysphagia Respiratory: no cough and no dyspnea Cardiovascular: no chest pain, no palpitations, no lightheadedness and no edema Gastrointestinal: + abdominal pain; no nausea and no vomiting Genitourinary: no dysuria Musculoskeletal: no body aches Integumentary: no rash Physical Exam Constitutional: + thin; no acute distress, not ill appearing and not intoxicated appearing Eyes: + anicteric sclerae ENMT: Ears: no hearing impairment Neck: normal visual inspection and trachea midline Respiratory: normal respiratory effort, lungs clear to auscultation Cardiovascular: RRR, no murmur, no edema Gastrointestinal (Abdomen): Inspection/Auscultation: + abnormal bowel sounds (absent) Percussion/Palpation: + abdomen tender laparoscopic incisions intact and open to air; midline incision with dressing placed with dried serosang fluid Musculoskeletal: Head/Neck/Chest: normocephalic, head atraumatic and neck supple Skin: no rashes, warm and dry Neurologic: moves all extremities Psychiatric: Orientation: alert and oriented x 3 Eye Contact: good eye contact Affect: + anxious affect Results & Data Vital Signs (Past 12 Hours) Vital Signs Temp Pulse Resp BP Pulse Ox 09/10/18 11:03 36.7 C 79 18 144/79 H 95 09/10/18 06:59 36.7 C 97 H 18 136/73 98 09/10/18 06:06 36.7 C 104 H 16 142/73 H 96 09/10/18 05:05 36.7 C 110 H 16 137/73 96 09/10/18 04:05 36.7 C 106 H 18 145/81 H 98 09/10/18 03:35 36.6 C 84 16 157/80 H 98 09/10/18 03:30 36.6 C 80 16 151/83 H 95 09/10/18 03:05 36.6 C 80 16 151/83 H 95 09/10/18 02:45 79 18 141/79 H 97 09/10/18 02:40 86 18 143/83 H 96 09/10/18 02:35 82 18 146/71 H 96 09/10/18 02:30 36.8 C 81 18 139/80 98 09/10/18 02:25 74 18 133/85 98 09/10/18 02:20 80 18 98 09/10/18 02:15 80 18 137/71 96 09/10/18 02:10 83 18 94 09/10/18 02:05 88 18 119/97 91 09/10/18 02:00 97 H 20 125/91 91 09/10/18 01:56 36.4 C L 102 H 22 86 L
[2018-09-11] MEDS: D5NSS + 20MEQ KCL 20 MEQ/1,000 ML BAG IV SCH ×2 (04:46→13:25)
[2018-09-11] MEDS: SODIUM CHLORIDE 0.9% 1000ML IV SCH (04:59)
[2018-09-11] MEDS: HYDROmorphone HCL 0.5MG/ML 50 ML CASSETTE IV PRN ×2 (06:56→13:13)
[2018-09-11 07:03] LABS: BUN Creatinine Ratio 9.6 (10-20); Calcium 8.3 mg/dl (8.5-10.1); Creatinine Clr Calc Pharmacy 128.7 ml/min; Est GFR (African American) 141.2; Est GFR (Non-African American) 121.8; Potassium 4.2 mmol/L (3.5-5.1)
[2018-09-11] MEDS: HEPARIN SOD 5,000 UNIT/0.5 ML VIAL SQ SCH ×2 (09:14→20:23)
[2018-09-11] MEDS: LORazepam 1 MG/2 ML VIAL IV PRN ×2 (14:01→22:51)
--- NOTE | 2018-09-11 15:06 | Hospitalist Progress Note ---
Date of Service September 11, 2018 Assessment & Plan (1) Small bowel obstruction: - S/P Ex Lap with open conversion and bowel resection with anastamosis; evidence of foreign body? 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 protocol -- Still hitting button more than administered doses but this is reduced today; Can use Tylenol PRN however patient is concerned due to concern that he could have hepatitis - NPO at this time - patient reports he does takes sips of water; Reinforced the importance of NPO as he denies passing flatus and needs bowel rest - Cefoxitin 1 g IV Q6H - DVT Prophylaxis - Heparin BID (2) Asthma: - Well controlled - no signs of exacerbation at this time; Will monitor (3) Bipolar disorder: - Also carries a diagnosis of ADHD; Reported seizure disorder - Hold home medications of Tegretol 700 mg BID, Fluoxetine 80 mg daily; Vistaril 25 mg BID and 150 mg HS, and Lamictal 100 mg daily until tolerating diet (4) Polysubstance abuse: - Reports meth use as his drug of choice - last use x 3 months ago during one of his relapses; takes Vivitrol for cravings and was due for his injection w hen he came in -- Due to opiate use will need to hold this as it is an opiate antagonist - Reports his cravings are increasing which makes him anxious and jittery - Reports he is currently in pain and not feeling high from the Dilaudid but does express concern about using this as he fears it could cause him to relapse - he is hoping to not need pain medication to go home with but states he can real ve his grandmother control them for him to prevent overuse; is asking for alternative pain control options which are relatively tough given he likely has tolerance to pain medication and milder forms likely not going to adequately control his pain - When his diet is truly advanced we can get him on his home medications which may help with some symptoms; Can use PRN Lorazepam in the time being. - Will continue to monitor closely for de-escalation of narcotics to help prevent him from issues - patient at this times appears to be very honest about his struggles with addiction and open to other suggestions and alternatives Subjective Pt reports that his pain is doing a lot better compared to his presentation. He admits to continued sips of water but denies food consumption. No nausea/vomiting but still not flatus. Had a long discussion today about is substance use and concerns. He admits to lapsing approx. 3 months ago and using meth. He reports it is his drug of choice and is trying to not utilize. He uses Vivitrol to help with his cravings and was due for this injection the day he came in so has not had this in over a month. He admits to meth cravings and some anxiety and jitteriness. He is worried about using narcotics. He reports he had an addiction to them in the past and states currently he feels pain and does not feel like he is getting high on the pain medication. Did ask if there were alternatives for pain control but is concerned he could have hepatitis and would like to avoid Tylenol; NSAIDs likely not a good option at this time. He is hoping to be relatively pain free so that he does not return home with narcotics. Reports his grandmother would hold on to them for him and control his use if he does need them. Also discussed his home medications but unfortunately there is no IV conversions for them. Did discuss utilizing PRN Lorazepam but did explain this too can be addictive Review of Systems Constitutional: + anorexia; no fever and no chills Ear, Nose, Mouth, Throat: no dry mouth and no sore throat Respiratory: no cough and no dyspnea Cardiovascular: no chest pain, no palpitations and no edema Gastrointestinal: + abdominal pain and + cramping; no nausea and no vomiting Genitourinary: no dysuria Musculoskeletal: no body aches Integumentary: no rash Psychiatric: + anxiety and + substance abuse Physical Exam Constitutional: + thin; no acute distress and not ill appearing Eyes: + anicteric sclerae ENMT: Ears: no hearing impairment Neck: normal visual inspection and trachea midline Respiratory: normal respiratory effort, lungs clear to auscultation Cardiovascular: RRR, no murmur, no edema Gastrointestinal (Abdomen): Inspection/Auscultation: + abnormal bowel sounds (absent) Percussion/Palpation: + abdomen tender lap incisions intact and well-approximated without drainage; midline incision with dressing applied with mild serosang (dried) at inferior portion of incision Musculoskeletal: Head/Neck/Chest: normocephalic, head atraumatic and neck supple Skin: no rashes, warm and dry Neurologic: moves all extremities Psychiatric: Orientation: alert and oriented x 3 Eye Contact: good eye contact Motor Behavior: + psychomotor agitation (mild) Affect: + anxious affect Results & Data Vital Signs (Past 12 Hours) Vital Signs Temp Pulse Pulse Resp BP Pulse Ox 09/11/18 12:00 36.7 C 68 18 159/72 H 09/11/18 07:15 36.4 C L 70 16 149/88 H 95 09/11/18 03:15 37.0 C 70 14 149/83 H 95
[2018-09-12] MEDS: D5NSS + 20MEQ KCL 20 MEQ/1,000 ML BAG IV SCH ×3 (01:39→19:25)
[2018-09-12] MEDS: LORazepam 1 MG/2 ML VIAL IV PRN (03:39)
[2018-09-12] MEDS: SODIUM CHLORIDE 0.9% 1000ML IV SCH (08:40)
[2018-09-12] MEDS: HEPARIN SOD 5,000 UNIT/0.5 ML VIAL SQ SCH ×2 (08:46→21:08)
[2018-09-12 08:49] LABS: Hematocrit (blood only) 39.8 % (42-52); Hemoglobin 13.2 g/dL (14.0-18.0); Mean Corpuscular Hgb Conc 33.2 g/dL (32-36); Mean Corpuscular Volume 85.6 fL (80-100); Mean Platelet Volume 9.2 fL (7.4-10.4); Platelet Count 130 K/uL (130-400); RDW Coefficient of Variation 13.4 % (11.5-14.5); RDW Standard Deviation 42.1 fL (36.4-46.3); Red Blood Count 4.65 M/uL (4.7-6.1); White Blood Count 4.03 K/uL (4.8-10.8)
[2018-09-12 09:21] LABS: BUN Creatinine Ratio 6.8 (10-20); Calcium 8.9 mg/dl (8.5-10.1); Creatinine Clr Calc Pharmacy 130.3 ml/min; Est GFR (African American) 141.9; Est GFR (Non-African American) 122.4; Potassium 3.8 mmol/L (3.5-5.1)
--- NOTE | 2018-09-12 10:51 | Surgery Progress Note ---
Date of Service September 12, 2018 Assessment & Plan (1) Small bowel obstruction: POD#2 exp lap and partial small bowel resection for foreign body. Bowels are now functioning. Will start full liquid diet. Continue to increase activity. Present on Admission?: Yes Subjective Had a large loose bowel movement yesterday. Pain is managed with meds. Hungry. No nausea or vomiting. Review of Systems Review of Systems: All systems reviewed & are unremarkable except as noted in HPI & below Physical Exam Respiratory: normal respiratory effort, lungs clear to auscultation Cardiovascular: RRR, no murmur, no edema Gastrointestinal (Abdomen): Inspection/Auscultation: abdomen normal to inspection and normal bowel sounds Percussion/Palpation: + abdomen tender and abdomen soft mild, dressing dry Neurologic: moves all extremities; no focal motor deficits Psychiatric: A+Ox3, euthymic affect Results & Data Vital Signs (Past 12 Hours) Vital Signs Temp Pulse Pulse Resp BP Pulse Ox 09/12/18 08:04 36.5 C 80 16 120/72 95 09/12/18 03:10 37.3 C 93 H 14 114/75 94 09/11/18 23:16 37.4 C 84 14 120/72 96
[2018-09-12] MEDS: carBAMazepine 200 MG TABLET PO SCH ×2 (13:27→21:02)
[2018-09-12] MEDS: FLUOXETINE HCL 20 MG CAP PO SCH (13:27)
--- NOTE | 2018-09-12 18:04 | Hospitalist Progress Note ---
Date of Service September 12, 2018 Assessment & Plan (1) Small bowel obstruction: - S/P Ex Lap with open conversion and bowel resection with anastamosis; evidence of foreign body? 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 protocol - given diet advancement could start to transition to po coverage -- Per discussion on 09/11 patient is nervous about addiction and was hoping at that time to not need narcotics for home use - will have to monitor for needs - Full liquid diet - appreciate surgical recommendations on advancement - Cefoxitin 1 g IV Q6H - DVT Prophylaxis - Heparin BID (2) Asthma: - Well controlled - no signs of exacerbation at this time; Will monitor (3) Bipolar disorder: - Also carries a diagnosis of ADHD; Reported seizure disorder - May resume Tegretol 700 mg BID, Fluoxetine 80 mg daily; Vistaril 25 mg BID and 150 mg HS, and Lamictal 100 mg daily (4) Polysubstance abuse: - Reports meth use as his drug of choice - last use x 3 months ago during one of his relapses; takes Vivitrol for cravings and was due for his injection the day he presented to the hospital -- Due to opiate use will need to hold this as it is an opiate antagonist - Reports his cravings are increasing which makes him anxious and jittery - Reports he is currently in pain and not feeling high from the Dilaudid but does express concern about using this as he fears it could cause him to relapse - he is hoping to not need pain medication to go home with but states he can have his grandmother control them for him to prevent overuse; is asking for alternative pain control options which are relatively tough given he likely has tolerance to pain medication and milder forms likely not going to adequately control his pain - Will continue to monitor closely for de-escalation of narcotics to help prevent him from issues Subjective Pt appears comfortable and states pain is better but still present. Moved bowels and tolerated diet advancement. Mostly just looking at his phone and doesn't look up at any point to discuss anything. Had to repeat most questions twice before getting a 1-2 word reply. Verbalizes no needs. Review of Systems Review of Systems: limited due to cooperation Gastrointestinal: + abdominal pain and + diarrhea/loose stools; no nausea, no vomiting and no constipation Physical Exam Constitutional: + thin; no acute distress and not ill appearing ENMT: Ears: no hearing impairment Neurologic: moves all extremities Psychiatric: Orientation: alert Eye Contact: + poor eye contact calm demeanor however non-cooperative with questions. Mostly texting on phone with occ. 1-2 word replays typically needing to repeat questions to get a response Results & Data Vital Signs (Past 12 Hours) Vital Signs Temp Pulse Resp BP Pulse Ox 09/12/18 15:19 36.8 C 71 14 112/65 99 09/12/18 11:45 36.7 C 72 17 124/72 98 09/12/18 08:04 36.5 C 80 16 120/72 95
[2018-09-12] MEDS: lamoTRIgine 100 MG TAB PO SCH (21:03)
[2018-09-12] MEDS ORDERED: Nursing to Pharmacy Communication ONE (21:20)
[2018-09-13] MEDS: D5NSS + 20MEQ KCL 20 MEQ/1,000 ML BAG IV SCH ×2 (05:19→17:03)
[2018-09-13] MEDS: SODIUM CHLORIDE 0.9% 1000ML IV SCH (05:21)
[2018-09-13] MEDS: HEPARIN SOD 5,000 UNIT/0.5 ML VIAL SQ SCH ×2 (09:55→20:29)
[2018-09-13] MEDS: FLUOXETINE HCL 20 MG CAP PO SCH (09:55)
[2018-09-13] MEDS: carBAMazepine 200 MG TABLET PO SCH ×2 (09:56→20:28)
[2018-09-13] MEDS ORDERED: KETOROLAC TROMETHAMINE 15 MG/ML VIAL IV PRN (12:01)
[2018-09-13] MEDS ORDERED: OXYCODONE/ACETAMINOPHEN 5mg/325mg TAB PO PRN ×2 (12:01→12:02)
[2018-09-13] MEDS ORDERED: DC PCA 1 EA DEVI ONE (12:03)
--- NOTE | 2018-09-13 12:06 | Surgery Progress Note ---
Date of Service September 13, 2018 Assessment & Plan (1) Small bowel obstruction: POD#3 exp lap and partial small bowel resection for foreign body. Bowels are now functioning. Will advance to low fiber diet today. Try po percocet and IV toradol for pain control. 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 Subjective Tolerated full liquids yesterday. Continuing to pass flatus. No nausea or vomiting. Using correctional officer lieutenant when he moves/ walks. Has history of addiction so concerned re use of postop pain meds. Physical Exam Respiratory: normal respiratory effort, lungs clear to auscultation Cardiovascular: RRR, no murmur, no edema Gastrointestinal (Abdomen): Inspection/Auscultation: abdomen normal to inspection and normal bowel sounds Percussion/Palpation: + abdomen tender and abdomen soft incision clean and intact Neurologic: moves all extremities; no focal motor deficits Psychiatric: A+Ox3, euthymic affect Results & Data Vital Signs (Past 12 Hours) Vital Signs Temp Pulse Pulse Resp BP BP Pulse Ox 09/13/18 06:59 36.5 C 55 L 18 118/68 94 09/13/18 04:04 52 L 09/13/18 03:28 36.6 C 54 L 14 107/61 95
[2018-09-13] MEDS: LORazepam 1 MG/2 ML VIAL IV PRN (19:05)
[2018-09-13] MEDS: lamoTRIgine 100 MG TAB PO SCH (20:28)
--- NOTE | 2018-09-13 20:51 | Hospitalist Progress Note ---
Date of Service September 13, 2018 Assessment & Plan (1) Small bowel obstruction: - S/P Ex Lap with open conversion and bowel resection with anastamosis; evidence of foreign body? - Pain much better controlled; converted to oral coverage -- Per discussion on 09/11 patient is nervous about addiction and was hoping at that time to not need narcotics for home use - will have to monitor for needs - Tolerating diet - Cefoxitin 1 g IV Q6H - DVT Prophylaxis - Heparin BID Patient is stable from his chronic conditions and progressing nicely from a SBO/surgical standpoint. He anticipates possible D/C tomorrow. At this time Hospitalists will sign off but please do not hesitate to contact us for any ac blaise change in condition/needs. (2) Asthma: - Well controlled - no signs of exacerbation at this time; Will monitor (3) Bipolar disorder: - Also carries a diagnosis of ADHD; Reported seizure disorder - Tegretol 700 mg BID, Fluoxetine 80 mg daily; Vistaril 25 mg BID and 150 mg HS, and Lamictal 100 mg daily (4) Polysubstance abuse: - Reports meth use as his drug of choice - last use x 3 months ago during one of his relapses; takes Vivitrol for cravings and was due for his injection the day he presented to the hospital -- Due to opiate use will need to hold this as it is an opiate antagonist - Reports his cravings are increasing which makes him anxious and jittery - Expresses concern about using narcotics as he fears it could cause him to relapse - he is hoping to not need pain medication to go home with but states he can have his grandmother control them for him to prevent overuse Supervising Physician Co-Signing Physician Notes BRADLEY Supervision Note: I did not personally see or examine the patient today, but I verified all senior points of BRADLEY Clayton's assessment and plan with the following exceptions/additions: Given h/o serious polysubstance abuse and dependence, would recommend AGAINST giving any opioids after discharge to take home. This would definitely be detrimental to his health as would contribute to a relapse. He is appearing quite comfortable and is moving bowels, violeta po. Subjective Pt reports his pain is doing much better and reports actually waking up with no pain. States its mostly with movement. Tolerating diet and continues to move bowels. Does express concern about narcotics and stated he tried Toradol but states it didn't seem to do much for him. States if he would go with pain medication he would have his grandma keep it and monitor its use. More conversant today and verbalizes no other issue. Review of Systems Constitutional: no fever and no chills Respiratory: no cough and no dyspnea Cardiovascular: no chest pain and no palpitations Gastrointestinal: + abdominal pain and + diarrhea/loose stools; no nausea, no vomiting and no constipation Genitourinary: no dysuria Psychiatric: + anxiety and + substance abuse Physical Exam Constitutional: + thin; no acute distress and not ill appearing Eyes: + anicteric sclerae ENMT: Ears: no hearing impairment Neck: normal visual inspection and trachea midline Respiratory: normal respiratory effort, lungs clear to auscultation Cardiovascular: RRR, no murmur, no edema Gastrointestinal (Abdomen): Inspection/Auscultation: + abnormal bowel sounds (absent) Percussion/Palpation: + abdomen tender Musculoskeletal: Head/Neck/Chest: normocephalic, head atraumatic and neck supple Skin: no rashes, warm and dry Neurologic: moves all extremities Psychiatric: Orientation: alert Eye Contact: + poor eye contact Motor Behavior: + psychomotor agitation (mild) Affect: + anxious affect Results & Data Vital Signs (Past 12 Hours) Vital Signs Temp Pulse Resp BP Pulse Ox 09/13/18 15:34 36.9 C 82 20 124/71 99
[2018-09-14] MEDS ORDERED: Nursing to Pharmacy Communication ONE (02:27)
[2018-09-14] MEDS: D5NSS + 20MEQ KCL 20 MEQ/1,000 ML BAG IV SCH (03:45)
--- NOTE | 2018-09-14 06:21 | Progress Note ---
Date of Service September 14, 2018 Assessment & Plan (1) Small bowel obstruction: monitor diet/ po intake, decrease IV stop IV atbx- ask medicine to cont to follow Subjective vitals stable, resting comfortably Physical Exam Physical Exam: no acute changes Results & Data Vital Signs (Past 12 Hours) Vital Signs Temp Pulse Resp BP Pulse Ox 09/13/18 23:35 36.7 C 66 14 116/73 98
[2018-09-14] MEDS: carBAMazepine 200 MG TABLET PO SCH ×2 (09:18→20:10)
[2018-09-14] MEDS: FLUOXETINE HCL 20 MG CAP PO SCH (09:18)
[2018-09-14] MEDS: HEPARIN SOD 5,000 UNIT/0.5 ML VIAL SQ SCH ×2 (09:20→20:11)
--- NOTE | 2018-09-14 18:10 | Hospitalist Progress Note ---
Date of Service September 14, 2018 Assessment & Plan (1) Small bowel obstruction: - S/P Ex Lap with open conversion and bowel resection with anastamosis; evidence of foreign body? - Pain much better controlled; converted to oral coverage and hasn't required any today -- Per discussion on 09/11 patient is nervous about addiction and was hoping at that time to not need narcotics for home use - will have to monitor for needs - Tolerating diet - DVT Prophylaxis - Heparin BID (2) Asthma: - Well controlled - no signs of exacerbation at this time; Will monitor (3) Bipolar disorder: - Also carries a diagnosis of ADHD; Reported seizure disorder - Tegretol 700 mg BID, Fluoxetine 80 mg daily; Vistaril 25 mg BID and 150 mg HS, and Lamictal 100 mg daily (4) Polysubstance abuse: - Reports meth use as his drug of choice - last use x 3 months ago during one of his relapses; takes Vivitrol for cravings and was due for his injection the day he presented to the hospital -- Due to opiate use will need to hold this as it is an opiate antagonist - Reports his cravings are increasing which makes him anxious and jittery - seems that anxiety did improve with resumption of home behavioral health medications - Expresses concern about using narcotics as he fears it could cause him to relapse - he is hoping to not need pain medication to go home with but states he can have his grandmother control them for him to prevent overuse Supervising Physician Co-Signing Physician Notes PA Supervision Note: I did not personally see or examine the patient today, but I verified all senior points of BRADLEY Clayton's assessment and plan with the following exceptions/additions: None Subjective Reports feeling well today. Has not required pain medication and tolerating diet and moving bowels. He is hoping to return home soon as he feels well. Continues with some abdominal pain but states its more with trying to lift or get out of bed and more muscular As discussed previously, he knows he is at risk for hepatitis and will screen for Hep C and B Reports no issues with his home medications and appears less anxious since resumption of these. Review of Systems Constitutional: no fever, no chills and no anorexia Respiratory: no cough and no dyspnea Cardiovascular: no chest pain, no palpitations and no edema Gastrointestinal: + abdominal pain and + diarrhea/loose stools; no nausea, no vomiting and no constipation Genitourinary: no dysuria Integumentary: no rash Neurologic: no unsteadiness Physical Exam Constitutional: + thin; no acute distress and not ill appearing Eyes: + anicteric sclerae ENMT: Ears: no hearing impairment Neck: normal visual inspection and trachea midline Respiratory: normal respiratory effort, lungs clear to auscultation Cardiovascular: RRR, no murmur, no edema Gastrointestinal (Abdomen): Inspection/Auscultation: normal bowel sounds Percussion/Palpation: abdomen soft; abdomen nontender lap incisions well- approximated without drainage or erythema; adi drain removed from low aspect of midline incision with dressing C/D/I; upper portion of midline incision well- approximated with kaylene present without drainage or erythema Musculoskeletal: Head/Neck/Chest: normocephalic, head atraumatic and neck supple Skin: no rashes, warm and dry Neurologic: moves all extremities Psychiatric: A+Ox3, euthymic affect Eye Contact: + poor eye contact Motor Behavior: + psychomotor agitation (mild) Results & Data Vital Signs (Past 12 Hours) Vital Signs Temp Pulse Pulse Resp BP Pulse Ox 09/14/18 15:23 36.9 C 65 16 113/73 98 09/14/18 07:00 36.4 C L 67 18 123/75 100
[2018-09-14] MEDS: lamoTRIgine 100 MG TAB PO SCH (20:10)
--- NOTE | 2018-09-15 07:52 | Discharge Summary ---
PRINCIPAL DIAGNOSIS: Bowel obstruction. PROCEDURES: The patient underwent laparotomy with small bowel resection for bowel obstruction. HISTORY OF PRESENT ILLNESS: The patient is a 28-year-old male presenting to Emergency Room with acute abdominal pain, nausea and vomiting which was unrelenting. HOSPITAL COURSE: He was taken to the operating room early hours of where he underwent laparoscopy, then laparotomy with finding of foreign body obstructing his small bowel and performed a small bowel resection, which he tolerated very well and has done well since progressing in both diet and activity, felt stable for discharge home today on 09/15/2018 to be followed in the surgical office.
[2018-09-15 08:07] LABS: Hematocrit (blood only) 42.5 % (42-52); Hemoglobin 14.7 g/dL (14.0-18.0); Mean Corpuscular Hgb Conc 34.6 g/dL (32-36); Mean Corpuscular Volume 83.5 fL (80-100); Mean Platelet Volume 8.9 fL (7.4-10.4); Platelet Count 144 K/uL (130-400); RDW Standard Deviation 39.4 fL (36.4-46.3); Red Blood Count 5.09 M/uL (4.7-6.1); White Blood Count 3.14 K/uL (4.8-10.8)
[2018-09-15 08:30] LABS: BUN Creatinine Ratio 12.7 (10-20); Calcium 8.9 mg/dl (8.5-10.1); Creatinine Clr Calc Pharmacy 117.1 ml/min; Est GFR (African American) 135.8; Est GFR (Non-African American) 117.2
[2018-09-15] MEDS: HEPARIN SOD 5,000 UNIT/0.5 ML VIAL SQ SCH (09:04)
[2018-09-15] MEDS: FLUOXETINE HCL 20 MG CAP PO SCH (09:05)
[2018-09-15] MEDS: carBAMazepine 200 MG TABLET PO SCH (09:06)
[2018-09-15 10:02] LABS: Hepatitis B Surface Antibody Immune
[2018-09-15 10:13] LABS: Hepatitis B Surface Antigen Neg (Neg)
[2018-09-15 10:41] LABS: Hepatitis C IgG 13Yrs+Old_Rflx Neg (Neg)
--- NOTE | 2018-09-15 15:51 | Hospitalist Progress Note ---
Date of Service September 15, 2018 Assessment & Plan (1) Small bowel obstruction: - S/p Ex Lap with open conversion and bowel resection with anastamosis; ?evidence of foreign body. - Pain much better controlled; will avoid narcotics at home due to h/o addiction. - Tolerating regular diet. (2) Asthma: - Well controlled - no signs of exacerbation at this time. (3) Bipolar disorder: - Also carries a diagnosis of ADHD; Reported seizure disorder - Tegretol 700 mg BID, Fluoxetine 80 mg daily; Vistaril 25 mg BID and 150 mg HS, and Lamictal 100 mg daily (4) Polysubstance abuse: - Reports meth use as his drug of choice - last use x 3 months ago during one of his relapses; takes Vivitrol for cravings and was due for his injection the day he presented to the hospital - Due to opiate use will need to hold this as it is an opiate antagonist - Will avoid narcotics at home -- cancelled prescription for [place]. Dispo: Pt. is medically stable for discharge, will sign off. Supervising Physician Co-Signing Physician Notes PA Supervision Note: I did not personally see or examine the patient today, but I verified all senior points of BRADLEY Workman's assessment and plan with the following exceptions/additions: None Subjective Pt. is doing well. Denies abd pain, constipation, N/V. Will be discharged to home. Review of Systems Review of Systems: All systems reviewed & are unremarkable except as noted in HPI & below Constitutional: no fever, no chills, no fatigue and no weakness Respiratory: no cough, no dyspnea, no dyspnea on exertion and no wheezing Cardiovascular: no chest pain, no palpitations and no edema Gastrointestinal: no abdominal pain, no nausea, no vomiting, no constipation a nd no diarrhea/loose stools Genitourinary: no difficulty urinating Musculoskeletal: no back pain and no joint pain Integumentary: no non-healing lesions Allergy / Immunological: no rash Physical Exam Physical Exam: General: Resting comfortably in no apparent distress; A&OX3 HEENT: NC/AT; PERRLA with EOMI; [place] conjunctiva, MMM. No erythema of posterior pharynx Neck: Supple and nontender Cardiac: RRR Lungs: CTA bilaterally Abdomen: Bowel normoactive X 4; Nontender to palpation Extremities: Warm. No edema present Neuro: No focal weakness Skin: No rash Results & Data Vital Signs (Past 12 Hours) Vital Signs Temp Pulse Resp BP Pulse Ox 09/15/18 07:04 36.4 C L 73 18 118/58 L 98 Laboratory Results 09/15/18 09/15/18 09/15/18 Range/Units 07:46 07:46 07:46 WBC 3.14 L (4.8-10.8) K/uL RBC 5.09 (4.7-6.1) M/uL Hgb 14.7 (14.0-18.0) g/dL Hct 42.5 (42-52) % MCV 83.5 (80-100) fL MCH 28.9 (25-34) pg MCHC 34.6 (32-36) g/dL RDW Std Deviation 39.4 (36.4-46.3) fL RDW Coeff of Bartolo 13.0 (11.5-14.5) % Plt Count 144 (130-400) K/uL MPV 8.9 (7.4-10.4) fL Sodium 137 (136-145) mmol/L Potassium 4.0 (3.5-5.1) mmol/L Chloride 103 (98-107) mmol/L Carbon Dioxide 28 (21-32) mmol/L Anion Gap 6.0 (3-11) BUN 11 (7-18) mg/dl Creatinine 0.89 (0.6-1.4) mg/dl Est Cr Clr Drug Dosing 117.1 ml/min Est GFR ( Amer) 135.8 Est GFR (Non-Af Amer) 117.2 BUN/Creatinine Ratio 12.7 (10-20) Glucose 85 (70-99) mg/dl Calcium 8.9 (8.5-10.1) mg/dl Hep Bs Antigen Neg (Neg) Hep Bs Antibody Immune Hep Bs Antibody, Quant 12.41 (>or=10mIU/mL Immune) mIU/mL Hepatitis C Antibody Neg (Neg)
== END 2018-09-15 12:05 | disposition home or self-care (01) | DRG 330 ==
LOC: ED 16:53 → OR 22:24 → 3N 09-10 01:44